=== PATIENT | male | born 1945 | race Caucasian/White ===

== ENCOUNTER 2018-04-28 15:04 | Observation (INO) | payer OTHER ==
[2018-04-28] MEDS ORDERED: ACETAMINOPHEN 500 MG TAB PO PRN (15:22)
[2018-04-28] MEDS ORDERED: ONDANSETRON 4 MG/2 ML VIAL IV PRN (15:22)
--- NOTE | 2018-04-28 15:58 | P.CNS ---
Date of Consult: 04/28/18 Reason for Consult: Admission Requesting Physician: Connor Arce Primary Care Provider: Silvana Chief Complaint: AMS History of Present Illness: This is a 72-year-old male with significant history of arthritis and urinary retention who presented to Dr. Arce office for altered mental status and urinary retention. Dr. Arce urologist 7 the patient to the hospital for direct admission for obstructive uropathy. Initially hospitalist team was consulted to admit the patient to the hospital for altered mental status and urinary retention. Patient's symptoms started about 2-3 days ago and has gotten progressively worse. Patient does have chronic urinary retention and does have a Hayes catheter in place for that. Home medications list reviewed: Yes - Past Medical/Surgical History Past Surgical History: Reviewed- Non-Contributory - Social History Smoking Status: Former smoker Counseled patient to stop smoking for: less than 10 minutes Smoking therapy provided: No Patient receptive to therapy: No Alcohol use: No CD- Drugs: No Caffeine use: No Place of Residence: Home Review of Systems 10-point ROS is otherwise unremarkable Physical Examination General: Alert, In no apparent distress, Oriented x1, Confused HEENT: Atraumatic, PERRLA, Mucous membr. moist/pink, EOMI, Sclerae nonicteric Neck: Supple, 2+ carotid pulse no bruit, No LAD, Without JVD or thyroid abnormality Respiratory: Clear to auscultation bilaterally, Normal air movement Cardiovascular: Regular rate/rhythm, Normal S1 S2 Gastrointestinal: Normal bowel sounds, No tenderness Musculoskeletal: No tenderness Integumentary: No rashes Neurological: Normal gait, Normal speech, Normal tone, Normal affect Lymphatics: No axilla or inguinal lymphadenopathy - Problems (1) Altered mental status Current Visit: Yes Status: Acute Qualifiers: Altered mental status type: disorientation Qualified Code(s): R41.0 - Disorientation, unspecified (2) Obstructive uropathy Current Visit: Yes Status: Acute Conclusions/Impression: Patient seen and examined at bedside with RN. Chart was reviewed. Case was discussed with Dr. Arce. Upon further questioning patient was asked about his primary care doctor who appears to be doctor Pina. After rising does his own patient here in the hospital. Will go ahead and hand over the case to Dr. Pina for further care. Initial orders placed for IV fluids and antibiotics. Head CT pending as well. Will give report to Dr. Pina for further care. Critical Care: No
[2018-04-28] MEDS ORDERED: NA CHLORIDE 0.9% 1,000 ML IV SCH (16:00)
[2018-04-28 16:48] LABS: Absolute Lymphocytes (CBC) 0.6 K/uL (0.7-4.9); Absolute Neutrophil 9.3 K/uL (1.8-8.0); Basophils % 0.4 % (0-1.3); Eosinophils % 0.4 % (0-4.4); Hematocrit 44.6 % (39.6-49.0); Lymphocytes % 5.3 % (15.3-44.8); MCH 33.1 pg (27.0-35.0); MCV 97.5 fL (80-100); MPV 8.1 fL (7.6-11.3); Monocytes % 9.3 % (3.3-12.3); RBC Red Blood Cell Count 4.58 M/uL (4.33-5.43)
[2018-04-28 16:53] LABS: Albumin 3.6 g/dL (3.4-5.0); Potassium 3.9 mmol/L (3.5-5.1)
[2018-04-28 16:56] LABS: Urine Appearance CLOUDY; Urine Bilirubin NEGATIVE (NEG); Urine Blood 3+ (NEG); Urine Color YELLOW; Urine Glucose NEGATIVE (NEG); Urine Protein NEGATIVE (NEG); Urine Specific Gravity 1.015 (1.005-1.030); Urine Urobilinogen 0.2 mg/dL (0.2-1.0)
--- NOTE | 2018-04-28 17:10 | RAD REPORT ---
EXAM DESCRIPTION: CT - Head Brain Wo Cont - 04/28/2018 3:49 pm CLINICAL HISTORY: AMS, dizziness COMPARISON: None. TECHNIQUE: Axial 5 mm thick images of the head were obtained without IV contrast. All CT scans are performed using dose optimization technique as appropriate and may include automated exposure control or mA/KV adjustment according to patient size. FINDINGS: No intracranial hemorrhage, mass, edema or shift of mid-line structures. No acute infarcti on changes seen. No abnormal extra-axial fluid collections. Ventricles are normal. Mastoid air cells are clear. There is complete opacification of the left maxillary sinus is soft tiss ue extending into the left nasal passage. There is some mineralization indicating inspissated mucus. Polyposis component is possible as well. No acute bony findings. IMPRESSION: No hemorrhage or other acute intracranial finding. Chronic left maxillary sinusitis. There may be a polyposis component.
[2018-04-28 17:14] LABS: Urine Bacteria <20 /HPF (NONE SEEN); Urine Culture Reflex Order NOT NEEDED; Urine RBC >50 /HPF (NONE SEEN)
[2018-04-28 17:38] LABS: Albumin 3.7 g/dL (3.4-5.0); Bilirubin Direct 0.3 mg/dL (0-0.2); Protein, Total 6.9 g/dL (6.4-8.2)
[2018-04-28] MEDS: CEFTRIAXONE/SWI 1gm 1 GM/10 ML SYR IVP SCH (17:42)
[2018-04-28] MEDS ORDERED: HYDROCODONE/APAP 7.5/325 MG TAB PO ONE (21:25)
[2018-04-28 21:31] LABS: Protime INR 1.08
[2018-04-28 21:49] LABS: Arterial Blood Carboxyhemoglob 1.1 % (0-1.5); Blood Gas Oxyhemoglobin 92.3 % (94-97); Blood O2 Saturation 94.6 % (92-98.5)
[2018-04-28] MEDS ORDERED: ENOXAPARIN 60 MG/0.6 ML SQ ONE (21:53)
[2018-04-28] MEDS: POTASSIUM CHLORIDE-0.45% NACL 20 MEQ/1,000 ML BAG IV SCH (21:57)
--- NOTE | 2018-04-28 22:05 | RAD REPORT ---
EXAM DESCRIPTION: RAD - Chest Single View - 04/28/2018 9:52 pm CLINICAL HISTORY: Dyspnea COMPARISON: None. TECHNIQUE: AP portable chest image was obtained 2138 hours . FINDINGS: Lungs are clear. Heart and vasculature are normal. No measurable pleural effusion and no p neumothorax. No acute bony abnormality seen. No acute aortic findings suspected. IMPRESSION: No acute cardiopulmonary process.
[2018-04-29] MEDS: POTASSIUM CHLORIDE-0.45% NACL 20 MEQ/1,000 ML BAG IV SCH ×2 (03:00→11:59)
[2018-04-29] MEDS ORDERED: PANTOPRAZOLE 40MG TABLET PO SCH (06:30)
[2018-04-29 06:45] LABS: Absolute Lymphocytes (CBC) 1.1 K/uL (0.7-4.9); Absolute Monocytes 0.8 K/uL (0.1-1.3); Absolute Neutrophil 4.6 K/uL (1.8-8.0); Basophils % 0.7 % (0-1.3); Eosinophils % 4.4 % (0-4.4); Hematocrit 41.4 % (39.6-49.0); Lymphocytes % 15.8 % (15.3-44.8); MCH 33.5 pg (27.0-35.0); MCV 98.1 fL (80-100); Monocytes % 12.3 % (3.3-12.3); RBC Red Blood Cell Count 4.22 M/uL (4.33-5.43)
[2018-04-29 07:06] LABS: ALT/SGPT 40 U/L (12-78); AST/SGOT 51 U/L (15-37); Alkaline Phosphatase 56 U/L (45-117); BUN Blood Urea Nitrogen 26 mg/dL (7-18); Bicarbonate 26 mmol/L (21-32); Bilirubin Total 0.8 mg/dL (0.2-1.0); Glucose Level 83 mg/dL (74-106); Magnesium 2.5 mg/dL (1.8-2.4); Phosphorus 2.5 mg/dL (2.5-4.9); Potassium 3.9 mmol/L (3.5-5.1); Sodium Level 145 mmol/L (136-145); Troponin I < 0.02 ng/mL (0.0-0.045)
[2018-04-29] MEDS ORDERED: CEFTRIAXONE 1 GM/NS 50 ML 1 GM/50 ML BAG IV SCH (09:00)
[2018-04-29] MEDS ORDERED: LOSARTAN POTASSIUM 50 MG TABLET PO SCH (09:00)
[2018-04-29] MEDS: CEFTRIAXONE/SWI 1gm 1 GM/10 ML SYR IVP SCH (09:13)
[2018-04-29] MEDS ORDERED: TRAMADOL HCL 50 MG TAB PO PRN (09:38)
[2018-04-29] MEDS ORDERED: HYDROCODONE/APAP 7.5/325 MG TAB PO PRN (09:38)
--- NOTE | 2018-04-29 09:40 | P.PN ---
Subjective Date of Service: 04/29/18 I was asked to see patient by primary care provider. Patient was getting short of breath. Blood gases revealed respiratory alkalosis. Blood pressure was elevated and patient with elevated D-dimer. Patient given 1 dose of Lovenox. V /Q scan ordered as patient's creatinine is elevated and unable to do a CT with PE protocol at this time. Continue gentle hydration. Patient may need and anxiolytics. Resume his home medications. Will monitor him closely. Review of Systems 10-point ROS is otherwise unremarkable Physical Examination - Vital Signs Temperature: 97.4 F Blood Pressure: 188/95 Pulse: 77 Respirations: 18 Pulse Ox (%): 96 - Physical Exam General: Alert, In no apparent distress Respiratory: Clear to auscultation bilaterally, Normal air movement Cardiovascular: Regular rate/rhythm, Normal S1 S2, Systolic murmur Gastrointestinal: Normal bowel sounds, Soft and benign, Non-distended, No tenderness Musculoskeletal: No clubbing, No swelling, No tenderness Neurological: Normal speech, Normal tone, Sensation intact, Cranial nerves 3-12 intact, Normal affect - Studies Laboratory Data (last 24 hrs) 04/29/18 06:17: Sodium 145, Potassium 3.9, BUN 26 H D, Creatinine 1.00, Glucose 83, Phosphorus 2.5, Magnesium 2.5 H, Total Bilirubin 0.8, AST 51 H, ALT 40, Alkaline Phosphatase 56, Troponin I < 0.02 04/29/18 06:17: WBC 6.8 D, Hgb 14.1, Hct 41.4, Plt Count 181 04/28/18 21:08: Troponin I 0.02 04/28/18 21:08: Creatinine 1.80 H D 04/28/18 21:08: PT 12.7 H, INR 1.08, APTT 28.5 04/28/18 17:03: Total Bilirubin 1.0, AST 71 H, ALT 47, Alkaline Phosphatase 69 04/28/18 16:13: Sodium 141, Potassium 3.9, BUN 49 H, Creatinine 3.30 H, Glucose 116 H, Total Bilirubin 1.0, AST 74 H, ALT 47, Alkaline Phosphatase 67 04/28/18 16:13: WBC 11.0 H, Hgb 15.2, Hct 44.6, Plt Count 201 Medications List Reviewed: Yes Assessment & Plan - Problems (Diagnosis) (1) Shortness of breath Status: Acute (2) Respiratory distress Status: Acute (3) Elevated d-dimer Status: Acute (4) Respiratory alkalosis Status: Acute (5) Obstructive uropathy Onset Date: 04/29/18 Status: Acute - Plan Plan: 1. V/Q scan 2. Anti coagulation 3. Echocardiogram 4. ABGs reviewed 5. Hydration and monitor renal function 6. Telemetry monitoring 7. GI and DVT prophylaxis - Advance Directives Does patient have a Living Will: Yes Does patient have a Durable POA for Healthcare: Yes - Code Status/Comfort Care Code Status Assessed: Yes Code Status: Full Code Critical Care: No Time Spent Managing PTS Care (In Minutes): 65
--- NOTE | 2018-04-29 10:59 | RAD REPORT ---
EXAM DESCRIPTION: CT - Chest For Pe Angio - 04/29/2018 10:44 am CLINICAL HISTORY: Chest pain. Pulmonary embolism. COMPARISON: Chest Single View dated 04/28/2018 TECHNIQUE: CT angiogram of the pulmonary arteries was performed with MIP. All CT scans are performed using dose optimization technique as appropriate and may include automated exposure control or mA/KV adjustment according to patient size. FINDINGS: No evidence of pulmonary thromboembolism. The ascending thoracic aorta is ectatic measuring up to 4.5 cm. No aortic dissection is seen. No pene trating ulcer is identified. The lungs are mildly emphysematous but clear. No pulmonary nodule, mass or infiltrate. No significant pericardial or pleural fluid. No concerning bony finding. IMPRESSION: No evidence of pulmonary thromboembolism. Ascending thoracic aorta is ectatic measuring up to 4.5 cm. COPD.
--- NOTE | 2018-04-29 11:17 | ECHO ---
HEIGHT: 5 ft 4 in WEIGHT: 146 lb 0 oz DATE OF STUDY: 04/29/[address]: Gregoria Hart MD 2-DIMENSIONAL: YES M.MODE: YES DOPPLER: YES COLOR FLOW: YES TDS: YES PORTABLE: NO DEFINITY: NO BUBBLE STUDY: NO DIAGNOSIS: PE CARDIAC HISTORY: CATHERIZATION: NO SURGERY: NO PROSTHETIC VALVE: NO PACEMAKER: NO MEASUREMENTS (cm) DIASTOLIC (NORMALS) SYSTOLIC (NORMALS) IVSd 1.1 (0.6-1.2) LA Diam 4.1 (1.9-4.0) LVEF 72% LVIDd 4.2 (3.5-5.7) LVIDs 2.5 (2.0-3.5) %FS 41% LVPWd 1.1 (0.6-1.2) Ao Diam 3.4 (2.0-3.7) 2 DIMENSIONAL ASSESSMENT: RIGHT ATRIUM: NORMAL LEFT ATRIUM: NORMAL RIGHT VENTRICLE: NORMAL LEFT VENTRICLE: NORMAL TRICUSPID VALVE: NORMAL MITRAL VALVE: NORMAL PULMONIC VALVE: NORMAL AORTIC VALVE: NORMAL PERICARDIAL EFFUSION: NONE AORTIC ROOT: NORMAL LEFT VENTRICULAR WALL MOTION: NORMAL DOPPLER/COLOR FLOW: NORMAL COMMENTS: NORMAL 2D ECHOCARDIOGRAM WITH DOPPLER. NO WALL MOTION ABNORMALITY. NO PULMONARY HYPERTENSION. TECHNOLOGIST: Nick LUKE
--- NOTE | 2018-04-29 13:55 | EKG ---
Test Date: 2018-04-29 Test Time: 08:58:33 [employer] Temperer: ETHAN MEASUREMENT RESULTS: Intervals: Rate: 66 WI: 148 QRSD: 86 QT: 424 QTc: 444 [place]: P: 68 WI: 148 QRS: -50 T: 24 INTERPRETIVE STATEMENTS: Normal sinus rhythm Left anterior fascicular block Abnormal ECG No previous ECG available for comparison Electronically Signed On 04-29-18 13:53:14 CDT by Oscar Hernandez
[2018-04-29] MEDS ORDERED: POTASSIUM CL SA 10 MEQ TAB PO ONE (15:13)
--- NOTE | 2018-04-29 18:44 | CON ---
Brief History: A 72-year-old gentleman, who came in with flank pain and abdominal pain. PVR showed he had over 800 mL in the bladder, was having obstructive uropathy, was confused. The daughter and s on-in-law were present. The patient has a history of retention. Apparently, he has gone into retent ion before once in 2013 when he was constipated, and then is able to void well after that. He said a t this time he was also constipated. When he went into urinary retention, he normally voids well. H e says he does not need anything more done for the prostate. He does not need any Flomax or any TURP to be done. He is good he says. Hayes catheter was placed, and he has passed over 2 L of urine ove rnight. His creatinine has responded well from a high of 3.3, now it is 1.0, GFR went from 19-73 ove rnight, so he is responding well to the drainage. He also had some difficulty breathing last night a nd he was ruled out for PE this morning. Apparently, they could not give him the contrast last night due to the GFR, but he did have a V/Q scan that was negative and a CT angiogram was done this mornin g was also negative. We will plan to keep his catheter in for weeks, at the moment on low-dose antib iotic prescription, and follow up with me in a week to have the catheter removed. Again, the patient does not want any further urological workup done. His last PSA was 4.1 done in 2013. Allergies: TO FLOMAX CAUSES HEADACHES, HE SAYS. Review of Systems: A 10-point review of systems essentially normal and negative. Vital Signs: Latest vital signs shows temperature 97.4, pulse 76, respirations 18, BP 170/90, and sa ts 97%. Past Surgical History: Vasectomy, right knee cartilage removal, and lower back injections. Family History: Father had a heart attack at 50 and history of lung cancer. Past Medical History: No significant past medical history. Immunizations: Up to date. Social History: Alcohol, drinksliquor infrequently. No drug use. Home Medications: Baclofen, tramadol, omeprazole, losartan, and hydrocodone. Physical Examination: Vital Signs: Afebrile, stable. General: Alert, no apparent distress, oriented now x3. Family is present in the room. HEENT: Atraumatic, normocephalic. Neck: Supple. Respiratory: Clear. Cardiovascular: S1, S2. Gastrointestinal: Normal bowel sounds. Skin: No rashes. Neurologic: Alert and oriented. Lymphatics: No lymphadenopathy. Labs: Latest chemistry; sodium 145, potassium 3.9, chloride 112, carbon dioxide 26, BUN 26, creatini ne 1.0, GFR 73, glucose 83, calcium 8.3, phosphorus 2.5, magnesium 2.5, AST 51, ALT 40, alkaline phos phatase 56. Hematology: white count 6.8, H and H 14 and 41, platelet count 181. Coagulation shows D-dimer elevated at 3426. Urine shows 3+ blood, negative nitrite, negative esterase, rbc greater than 50, most likely from the Hayes catheter and deflation of the bladder. Assessment: Obstructive uropathy from the patient secondary to constipation, most likely. The patie nt just wants conservative management. He is allergic to Flomax. We wants to just have the constipation resolve and then remove his catheter in a week and send him home on prophylactic antibio tic. PB/MODL Voice ID: [id number] Report ID: [id number]
[2018-04-29] MEDS ORDERED: BACLOFEN 10 MG TAB PO SCH (21:00)
--- NOTE | 2018-04-30 00:06 | SS ---
Date of Discharge: 04/29/2018 SHORT-STAY SUMMARY The patient was admitted to the hospital on 04/28 after presenting to the office of Dr. Arce, at [facility] time he had obvious urinary retention which he had in the past. Dr. Arce's office inserted the c atheter with 1000 cc were removed. Since he was slightly confused, he was admitted for further obser vation and treatment. Shortly after admission, he became according to the nurse slightly more disori entated, and had trouble breathing, and his O2 saturation dropped, and the possibility of PE was cons idered; however, his workup subsequently proved to be negative. His creatinine on admission was 3.3, possibly causing his symptoms. By the time he had drained the urine, and had IV fluids, his creatin ine dropped dramatically, so it was 1 by the next morning, at which time, the CT angio was done. By this time, he was fully orientated. He stated he did not feel it was his prostate, although Dr. Alin eastman felt that it was. He had a similar scenario a number of years ago, at that time also decided not t o have the procedure. Remainder of his hospital stay was relatively benign. His blood work was norm al. He was seen by Dr. Arce in the afternoon of the discharge, who felt the catheter should be left in for the next few days to be seen next Saturday. He was placed on Bactrim, to follow up with me lat er in the week. HR/MODL Voice ID: [id number] Report ID: [id number]
[2018-04-30] MEDS ORDERED: LOSARTAN POTASSIUM 50 MG TABLET PO SCH (09:00)
[2018-04-30] MEDS ORDERED: HOME MED 1 EA UNK (Omeprazole [Prilosec] 40 MG) PO SCH (09:00)
== END 2018-04-29 17:35 | disposition home or self-care (01) ==
LOC: 2ND 15:04
PROVIDERS: ADMIT Family Medicine; ATTEND Family Medicine
DX: N13.9 Obstructive and reflux uropathy, unspecified (principal); E87.3 Alkalosis; R79.1 Abnormal coagulation profile; K59.00 Constipation, unspecified
CPT/HCPCS: 36415; 70450; 71045; 71275; 80053; 80076; 81001; 82565; 82805; 83735; 84100; 84484; 85025; 85379; 85610; 85730; 87086; 87088; 93005; 93306; G0378; J0696; J1650; J7030; Q9967

== ENCOUNTER 2018-07-16 08:54 | Day surgery (SDC) | payer OTHER ==
[2018-07-16] MEDS ORDERED: Ringers Lactate 1,000 ML IV ONE ×2 (09:27→12:31)
[2018-07-16] MEDS ORDERED: CEFAZOLIN 1GM (PREMIX IV) 1 GM/50 ML BAG ONE (09:27)
[2018-07-16] MEDS ORDERED: PROPOFOL 200 MG/20 ML VIAL IV ONE (10:35)
[2018-07-16] MEDS ORDERED: MIDAZOLAM HCL 2 MG/2 ML INJ ONE (10:38)
[2018-07-16] MEDS ORDERED: FENTANYL CITR 100 MCG/2 ML ONE (10:38)
[2018-07-16] MEDS ORDERED: LIDOCAINE 2% MPF 5 ML VIAL ONE (10:39)
[2018-07-16] MEDS ORDERED: ROCURONIUM 50 MG/5 ML VIAL IV ONE (10:40)
[2018-07-16] MEDS ORDERED: BUPIVACAINE 0.5% PF 10 ML VIAL ONE (10:40)
[2018-07-16] MEDS ORDERED: ONDANSETRON 4 MG/2 ML VIAL ONE (10:40)
[2018-07-16] MEDS ORDERED: EPHEDRINE SULF 50 MG/10 ML SYR ONE (11:19)
[2018-07-16] MEDS ORDERED: NEOSTIGMINE 1 MG/ML -5 ML SYRINGE ONE (12:20)
[2018-07-16] MEDS ORDERED: GLYCOPYRROLATE 0.2 MG/ML SYR ONE (12:20)
[2018-07-16] MEDS: MEPERIDINE HCL 25 MG/0.5 ML ONE ×4 (12:34→12:52)
[2018-07-16] MEDS ORDERED: MEPERIDINE HCL 25 MG/0.5 ML ONE (12:55)
[2018-07-16] MEDS ORDERED: HYDROCODONE/APAP 7.5/325 MG TAB ONE (13:27)
--- NOTE | 2018-07-16 23:30 | OP ---
Date of Procedure: 07/16/2018 Surgeon: Rodriguez Mejía MD Preoperative Diagnosis: Bilateral inguinal hernia. Postoperative Diagnosis: Bilateral inguinal hernia. Procedure: Repair of bilateral inguinal hernias. Estimated Blood Loss: Minimal. Specimen: Bilateral hernia sac and cord lipoma on the right side. Findings: As above. Anesthesia: General. Complications: None. Disposition: The patient tolerated the procedure in stable condition and was taken to recovery in go od general condition. Description Of Procedure: The patient was brought to the OR and placed in the supine position. Gene ral anesthesia was begun. The patient was prepped and draped in usual sterile fashion. Marcaine 0.5 % was infiltrated in a field block fashion in both groins. A 4-cm oblique incision was made in the r ight groin between the pubic tubercle and the anterior iliac superior spine. Subcutaneous tissues we re divided. The fascia was identified and divided. Aponeurosis was identified and mobilized inferio rly to expose shelving edge and it was then opened through the external ring. Ilioinguinal nerve was identified and retracted out of the field of dissection. Cord was mobilized, skeletonized. A large cord lipoma and hernia sac were identified and from the cord structures, and then both the hernia sac and cord lipoma were excised and sent to Pathology as specimen. A 2-0 Prolene suture lig ature and free hand tie were used to tie out the base of the hernia sac, and 2-0 chromic was used to tie out the base of the cord lipoma. Then, Marlex mesh plug was placed in the internal ring, secured with VersaTack stapler only. Mesh was placed on the inguinal floor, secured medially to the pubic t ubercle, inferiorly to the shelving edge, superiorly to the conjoined tendon, and laterally to each o ther. Then, cord structures and the inguinal nerve were placed back in anatomical location. A 2-0 P rolene was used to close the aponeurosis, and 3-0 chromic was used to close the Ethan fascia. Stapl es were used to close the skin. Exact same operation was carried on the left side, except the hernia sac was much smaller. Otherwise, the findings remained the same, and the repair was the same. Subs equently, after both sides were done, sterile dressings were applied. The patient was awakened and t aken to Recovery in good general condition. Discharge Note: The patient will go to Day Surgery and home when stable. Disposition: Home. Condition: Stable. Discharge Instructions: Resume home medications and diet. Activity as tolerated. No heavy lifting. Remove outer dressing in 2 days. Shower. Keep wound clean and dry. Follow up in my office in 1 w [place]. Call for appointment. Tylenol No. 3 one tablet p.o. q.4 hours p.r.n. pain. Ice pack, scrotal support. /MODL Voice ID: [id number] Report ID: [id number]
== END 2018-07-16 15:02 | disposition home or self-care (01) ==
LOC: OR 08:54
PROVIDERS: ATTEND Surgery
PROC: 0YUA0JZ Supplement Bilateral Inguinal Region with Synthetic Substitute, Open Approach (ICD-10-PCS; principal; 2018-07-16 10:00)
DX: K40.20 Bilateral inguinal hernia, without obstruction or gangrene, not specified as recurrent (principal); I10 Essential (primary) hypertension; N40.0 Benign prostatic hyperplasia without lower urinary tract symptoms; K21.9 Gastro-esophageal reflux disease without esophagitis; Z88.0 Allergy status to penicillin; Z80.1 Family history of malignant neoplasm of trachea, bronchus and lung; Z80.41 Family history of malignant neoplasm of ovary
CPT/HCPCS: 49505; 88302; J0690; J2175 ×2; J2250; J2405; J2704; J2710; J3010

== ENCOUNTER 2023-10-20 17:32 | Inpatient (IN) | payer OTHER ==
[2023-10-20] MEDS ORDERED: NA CHLORIDE 0.9% 250 ML ONE (18:18)
[2023-10-20] MEDS ORDERED: CEFEPIME 2 GM VIAL ONE (18:18)
[2023-10-20] MEDS ORDERED: VANCOMYCIN 1 GM/VIAL ONE (18:18)
[2023-10-20] MEDS ORDERED: NA CHLORIDE 0.9% 100 ML ONE (18:19)
[2023-10-20 18:31] LABS: Absolute Lymphocytes (CBC) 0.4 K/uL (0.7-4.9); Absolute Monocytes 0.7 K/uL (0.1-1.3); Absolute Neutrophil 11.2 K/uL (1.8-8.0); Basophils % 0.1 % (0-1.3); Eosinophils % 0.2 % (0-4.4); Hematocrit 38.4 % (39.6-49.0); Hemoglobin 12.8 g/dL (13.6-17.9); Lymphocytes % 3.1 % (15.3-44.8); MCH 32.3 pg (27.0-35.0); MCHC 33.4 g/dL (32.0-36.0); MCV 96.6 fL (80-100); MPV 7.4 fL (7.6-11.3); Monocytes % 5.9 % (3.3-12.3); Neutrophils % 90.7 % (41.7-73.7); Platelets 316 thou/uL (152-406); RBC Red Blood Cell Count 3.97 M/uL (4.33-5.43); Red Cell Distribution Width 14.6 % (12.1-15.2)
[2023-10-20] MEDS ORDERED: IPRATROPIUM BROM 0.5MG/2.5ML ONE (18:31)
[2023-10-20] MEDS ORDERED: ALBUTEROL 2.5 MG/3 ML NEB SOL ONE (18:31)
[2023-10-20 18:39] LABS: PT Prothrombin Time 15.6 SECONDS (9.5-12.5); PTT, Activated Partial Thromb 36.1 SECONDS (24.3-36.9); Protime INR 1.43
[2023-10-20 18:45] LABS: Blood Gas Oxyhemoglobin 84.2 % (94-97); Blood O2 Saturation 86.4 % (92-98.5)
[2023-10-20 18:47] LABS: Albumin 2.5 g/dL (3.4-5.0); Albumin/Globulin Ratio 0.6 (1.1-1.8); Anion Gap 9.9 mEq/L (5.0-15.0); Bilirubin Total 0.7 mg/dL (0.2-1.0); Globulin 4.1 g/dL (2.3-3.5); Potassium 3.9 mEq/L (3.5-5.1); Protein, Total 6.6 g/dL (6.4-8.2); Troponin High Sensitivity 6.1 pg/mL (<58.9)
--- NOTE | 2023-10-20 18:58 | RAD REPORT ---
EXAM DESCRIPTION: RAD - Chest Single View - 10/20/2023 6:44 pm CLINICAL HISTORY: DYSPNEA COMPARISON: Chest Single View dated 04/28/2018; Abdomen Pelvis W Contrast dated 06/12/2018 FINDINGS: Lines: None. Lungs: Airspace disease in the right lung, most notably at the right lung base. Possible atelectasis at the left lung base. Pleural: Probable moderate right pleural effusion. Cardiac: Partially obscured and not well evaluated. Mediastinum: Within normal limits. Bones: No acute fractures. Other: None IMPRESSION: Right pleural effusion which may be moderate in size with underlying airspace disease th at could be secondary to atelectasis, pneumonia, or alternate process
[2023-10-20] MEDS ORDERED: NA CHLORIDE 0.9% 500 ML ONE ×2 (19:05→19:19)
[2023-10-20] MEDS ORDERED: ALBUMIN HUMAN 25% 100 ML IV ONE (19:19)
[2023-10-20] MEDS ORDERED: ACETAMINOPHEN 325 MG TABLET PO PRN (19:45)
[2023-10-20] MEDS ORDERED: ONDANSETRON 4 MG/2 ML VIAL IV PRN (19:45)
--- NOTE | 2023-10-20 19:49 | EDPHYS ---
Physician Documentation [facility] Name: Jay Patel Age: 78 yrs Sex: Male : 1945 Arrival Date: 10/20/2023 Time: 17:32 Bed 8 Private MD: ED Physician Froy Melgar HPI: 10/19 18:34 This 78 yrs old Male presents to ER via EMS with complaints of Shortness Of Breath, rt Altered Mental Status. 18:34 Patient presents to the ED with confusion, altered mental status. Patient states that rt he was sleeping it. Does have a cough. Denies other acute complaints at this time, symptoms are severe in severity, no other aggravating or alleviating factors. Patient's room air saturations were reportedly 94% on room air.. Historical: - Allergies: 17:46 Bactrim; ld1 17:46 PENICILLINS; ld1 - Home Meds: 18:40 alprazolam 0.5 mg Oral tablet 1 tab daily [Active]; escitalopram oxalate 10 mg oral ld1 tablet 1 tab daily [Active]; prednisone 1 mg oral tablet daily [Active]; atorvastatin 10 mg oral tablet 1 tab daily [Active]; omeprazole 40 mg oral capsule,delayed release (e.c.) 1 cap daily [Active]; baclofen 10 mg Oral tablet 1 tab 4 times per day [Active]; tamsulosin 0.4 mg oral capsule 1 cap daily [Active]; hydrocodone-acetaminophen 7.5-325 mg Oral tablet 1 tab 3 times per day [Active]; - PMHx: 18:43 Anxiety; BPH; Depressive disorder; Hypercholesterolemia; ld1 - Immunization history:: Adult Immunizations up to date. - Infectious Disease History:: Denies. - Social history:: Smoking status: Patient denies any tobacco usage or history of. - Family history:: not pertinent. ROS: 18:34 Cardiovascular: Negative for chest pain, palpitations, and edema, Abdomen/GI: Negative rt for abdominal pain, nausea, vomiting, diarrhea, and constipation, MS/Extremity: Negative for injury and deformity, 18:34 Constitutional: Positive for fatigue, malaise, 18:34 Respiratory: Positive for cough, shortness of breath, Exam: 17:46 Constitutional: This is a well developed, well nourished patient who is awake, alert, rt and in no acute distress. Head/Face: Normocephalic, atraumatic. Chest/axilla: Normal chest wall appearance and motion. Nontender with no deformity. No lesions are appreciated. Cardiovascular: Regular rate and rhythm with a normal S1 and S2. No gallops, murmurs, or rubs. Normal PMI, no JVD. No pulse deficits. Abdomen/GI: Soft, non-tender, with normal bowel sounds. No distension or tympany. No guarding or rebound. No evidence of tenderness throughout. Skin: Warm, dry with normal turgor. Normal color with no rashes, no lesions, and no evidence of cellulitis. MS/ Extremity: Pulses equal, no cyanosis. Neurovascular intact. Full, normal range of motion. 17:46 ECG was reviewed by the Attending Physician. 18:34 ECG was reviewed by the Attending Physician. rt 18:34 Respiratory: Scattered crackles heard on all lung cabrera, moderate respiratory distress, Vital Signs: 17:45 BP 106 / 64; Pulse 96; Resp 23; Temp 97.9(TE); Pulse Ox 100% on 15 lpm Non-rebreather ld1 mask; Weight 51.26 kg; Height 5 ft. 6 in. ; Pain 0/10; 18:03 Pulse Ox 88% on 10 lpm Non-rebreather mask; ld1 18:39 BP 92 / 59; Pulse 84; Resp 16; Pulse Ox 99% on 15 lpm BiPAP; ld1 19:52 BP 103 / 70; Pulse 81; Resp 19 S; Pulse Ox 99% on BiPAP; lg3 17:45 Body Mass Index 18.24 (51.26 kg, 167.64 cm) ld1 17:45 Pain Scale: Adult ld1 18:03 Notified ERP and Respiratory ld1 MDM: 17:58 Patient medically screened. rt 19:49 Differential diagnosis: Pneumonia, CHF, sepsis. Antibiotic administration: Data rt reviewed: vital signs, nurses notes, lab test result(s), EKG, radiologic studies. Consideration of Admission/Observation Patient was admitted/placed on observation. Management of patient was discussed with the following: Hospitalist: Agrees to admit. Discussed with Dr. Pina, he states that he does not believe that he is currently the patient's PCP and requested hospitalist be consulted for admission.. I considered the following discharge prescriptions or medication management in the emergency department Medications were administered in the Emergency Department. See MAR. Independent interpretation of the following test(s) in the Emergency Department X-Ray: My interpretation is Pneumonia seen on interpretation of x-ray images. Care significantly affected by the following chronic conditions: Hypertension. Counseling: I had a detailed discussion with the patient and/or guardian regarding the historical points, exam findings, and any diagnostic results supporting the discharge/admit diagnosis, lab results, radiology results, the need for further work-up and treatment in the hospital. Response to treatment: the patient's symptoms have markedly improved after treatment. ED course: We that patient is at high risk for respiratory failure due to volume overload, will stop with 1 L fluids, he is improving from a blood pressure standpoint. Will give some albumin for colloid support.. 10/19 18:05 Order name: Blood Culture Adult (2) rt 10/19 18:05 Order name: CBC with Diff rt 10/19 18:05 Order name: CMP; Complete Time: 18:53 rt 10/19 18:05 Order name: Lactate w/ 2H reflex if indic.; Complete Time: 18:53 rt 10/19 18:05 Order name: Protime (+inr); Complete Time: 18:53 rt 10/19 18:05 Order name: Ptt, Activated; Complete Time: 18:53 rt 10/19 18:05 Order name: ABG; Complete Time: 18:53 rt 10/19 18:05 Order name: Troponin High Sensitivity; Complete Time: 18:53 rt 10/19 18:05 Order name: BNP; Complete Time: 18:53 rt 10/19 19:50 Order name: Urinalysis w/ reflexes EDMS 10/19 19:50 Order name: CBC with Automated Diff EDMS 10/19 19:50 Order name: CBC with Automated Diff EDMS 10/19 19:50 Order name: Comprehensive Metabolic Panel EDMS 10/19 19:50 Order name: Comprehensive Metabolic Panel EDMS 10/19 20:15 Order name: Manual Differential EDMS 10/19 18:05 Order name: Chest Single View XRAY; Complete Time: 19:12 rt 10/19 18:05 Order name: Accucheck; Complete Time: 18:06 rt 10/19 18:05 Order name: Cardiac monitoring; Complete Time: 18:05 rt 10/19 18:05 Order name: EKG - Nurse/Tech; Complete Time: 18:05 rt 10/19 18:05 Order name: IV Saline Lock - Large Bore; Complete Time: 18:05 rt 10/19 18:05 Order name: Labs collected and sent; Complete Time: 18:05 rt 10/19 18:05 Order name: O2 Per Protocol; Complete Time: 18:06 rt 10/19 18:05 Order name: O2 Sat Monitoring; Complete Time: 18:06 rt 10/19 18:05 Order name: Vital Signs; Complete Time: 18:06 rt EC:46 Rate is 93 beats/min. Rhythm is regular, Normal Sinus Rhythm with No ectopy. Left axis rt deviation noted. UT interval is normal. QRS interval is normal. QT interval is normal. No Q waves. Clinical impression: NSR w/ Non-specific ST/T Changes. 18:29 Rate is 86 beats/min. Rhythm is regular, Normal Sinus Rhythm with No ectopy. QRS [place] rt is Normal. UT interval is normal. QRS interval is normal. QT interval is normal. No Q waves. Clinical impression: NSR w/ Non-specific ST/T Changes. Administered Medications: 18:29 Drug: Cefepime IVPB 2 grams IVPB at 200 ml/hr once over 30 mins; (mix in NS 100 mL) ld1 Route: IVPB; Rate: 200 ml/hr; Infused Over: 30 mins; Site: right upper arm; 19:03 Follow up: Response: No adverse reaction; IV Status: Completed infusion; IV Intake: bm8 100ml 18:38 Drug: DuoNeb Nebulize (3:1) (2.5 mg - 0.5 mg) 3 ml Nebulizer once Route: Nebulizer; ld1 19:03 Follow up: Response: No adverse reaction bm8 19:03 Drug: vancoMYCIN IVPB 1 grams IVPB once over 2 hrs Route: IVPB; Infused Over: 2 hrs; bm8 Site: right antecubital; 19:05 Drug: NS 0.9% IV 500 ml IV at bolus once Route: IV; Rate: bolus; Site: right bm8 antecubital; 19:49 Follow up: Response: No adverse reaction; IV Status: Completed infusion; IV Intake: lg3 500ml 19:48 Drug: NS 0.9% IV 500 ml IV at bolus once Route: IV; Rate: bolus; Site: right lg3 antecubital; 19:58 Drug: Albumin IVPB 25 grams 100 ml IVPB once; (Note: Albumin 25% concentration) Volume: lg3 100 ml; Route: IVPB; Site: right antecubital; Disposition: 19:50 Critical Care:. rt Disposition Summary: 10/20/23 19:49 Hospitalization Ordered Notes: Hospitalization Status: Inpatient Admission rt Provider: Nate Washington rt Location: Intensive Care Unit rt Condition: Critical rt Problem: new rt Symptoms: have improved rt Bed/Room Type: Standard rt Room Assignment: 4-(10/20/23 20:11) rv1 Diagnosis - Pneumonia rt - Sepsis rt - Hypoxic respiratory failure rt Forms: - Medication Reconciliation Form rt - SBAR form rt - Leadership Thank You Letter rt Critical care time excluding procedures: 19:50 Critical care time: Bedside Care: 30 minutes, Consultation: 5 minutes. Total time: 35 rt minutes Signatures: Dispatcher [employer] Yoli Gu RN RN lg3 Anisa Huerta RN RN ld1 Froy Melgar MD MD rt Laurie Ocampo rv1 Mihai Haynes, RN RN bm8 Corrections: (The following items were deleted from the chart) 18:06 18:06 BLOOD CULTURE*+BA.LAB.BRZ ordered. EDMS EDMS 18:06 18:06 CBC+H.LAB.BRZ ordered. EDMS EDMS 18:06 18:06 COMPREHENSIVE METABOLIC PANEL+C.LAB.BRZ ordered. EDMS EDMS 18:06 18:06 LACTATE+C.LAB.BRZ ordered. EDMS EDMS 18:06 18:06 PROTIME (+INR)+COAG.LAB.BRZ ordered. EDMS EDMS 18:06 18:06 PTT, ACTIVATED+COAG.LAB.BRZ ordered. EDMS EDMS 18:06 18:06 Troponin High Sensitivity+C.LAB.BRZ ordered. EDMS EDMS 18:06 18:06 PROBNP+C.LAB.BRZ ordered. EDMS EDMS 18:06 18:06 Chest Single View+RAD.RAD.BRZ ordered. EDMS EDMS 18:06 18:06 Arterial Blood Gas+RC.LAB.BRZ ordered. EDMS EDMS 20:11 19:49 rt rv1
--- NOTE | 2023-10-20 19:49 | ER ---
Nurse's Notes [facility] Name: Jay Patel Age: 78 yrs Sex: Male : 1945 Arrival Date: 10/20/2023 Time: 17:32 Bed 8 Private MD: Diagnosis: Pneumonia;Sepsis;Hypoxic respiratory failure Presentation: 10/19 17:45 Chief complaint: EMS states: toned out to patient home for altered mental status and ld1 low SpO2 of 86% RA. Coronavirus screen: At this time, the client does not indicate any symptoms associated with coronavirus-19. Ebola Screen: No symptoms or risks identified at this time. Initial Sepsis Screen: Does the patient meet any 2 criteria? No. Patient's initial sepsis screen is negative. Does the patient have a suspected source of infection? No. Patient's initial sepsis screen is negative. Risk Assessment: Do you want to hurt yourself or someone else? Patient reports no desire to harm self or others. Onset of symptoms was October 20, 2023. 17:45 Method Of Arrival: EMS: [facility] ld1 17:45 Acuity: YURIDIA 3 ld1 Triage Assessment: 17:46 General: Appears in no apparent distress. comfortable, Behavior is calm, cooperative, ld1 appropriate for age. Pain: Denies pain. EENT: No signs and/or symptoms were reported regarding the EENT system. Neuro: Level of Consciousness is awake, alert, obeys commands, Oriented to person, place, time, situation, Appropriate for age. Cardiovascular: Capillary refill < 3 seconds Patient's skin is warm and dry. Rhythm is sinus rhythm. Respiratory: Reports shortness of breath at rest cough that is non-productive, Airway is patent Respiratory effort is even, labored. Respiratory: Onset: The symptoms/episode began/occurred suddenly, the patient has moderate shortness of breath. GI: Abdomen is flat, non-distended. : No signs and/or symptoms were reported regarding the genitourinary system. Derm: No signs and/or symptoms reported regarding the dermatologic system. Musculoskeletal: No signs and/or symptoms reported regarding the musculoskeletal system. Historical: - Allergies: 17:46 Bactrim; ld1 17:46 PENICILLINS; ld1 - Home Meds: 18:40 alprazolam 0.5 mg Oral tablet 1 tab daily [Active]; escitalopram oxalate 10 mg oral ld1 tablet 1 tab daily [Active]; prednisone 1 mg oral tablet daily [Active]; atorvastatin 10 mg oral tablet 1 tab daily [Active]; omeprazole 40 mg oral capsule,delayed release (e.c.) 1 cap daily [Active]; baclofen 10 mg Oral tablet 1 tab 4 times per day [Active]; tamsulosin 0.4 mg oral capsule 1 cap daily [Active]; hydrocodone-acetaminophen 7.5-325 mg Oral tablet 1 tab 3 times per day [Active]; - PMHx: 18:43 Anxiety; BPH; Depressive disorder; Hypercholesterolemia; ld1 - Immunization history:: Adult Immunizations up to date. - Infectious Disease History:: Denies. - Social history:: Smoking status: Patient denies any tobacco usage or history of. - Family history:: not pertinent. Screenin:[address] [facility] ED Fall Risk Assessment (Adult) History of falling in the last 3 months, ld1 including since admission No falls in past 3 months (0 pts). Abuse screen: Denies threats or abuse. Denies injuries from another. Nutritional screening: No deficits noted. Tuberculosis screening: No symptoms or risk factors identified. Assessment: 17:48 Reassessment: See triage assessment. Cardiovascular: Capillary refill < 3 seconds ld1 Patient's skin is warm and dry. Respiratory: Airway is patent Respiratory effort is even, labored, Breath sounds are diminished bilaterally. 18:43 Reassessment: Patient appears in no apparent distress at this time. No changes from ld1 previously documented assessment. 19:08 General: Appears in no apparent distress. comfortable, Behavior is quiet. Pain: Denies bm8 pain. Neuro: Level of Consciousness is pt responds to verbal open eyes when speaking with him.. Cardiovascular: Capillary refill < 3 seconds Patient's skin is warm and dry. Respiratory: Patient placed on BiPAP: Respiratory Rate: 16 Breath sounds are diminished in right upper lobe, right middle lobe and right lower lobe. GI: No deficits noted. No signs and/or symptoms were reported involving the gastrointestinal system. : No deficits noted. No signs and/or symptoms were reported regarding the genitourinary system. EENT: No deficits noted. No signs and/or symptoms were reported regarding the EENT system. 19:52 General: Appears in no apparent distress. comfortable, Behavior is calm. Pain: Denies lg3 pain. Neuro: Level of Consciousness is awake, alert, confused, Oriented to person, place. Cardiovascular: No deficits noted. Denies chest pain, shortness of breath, Heart tones S1 S2 present Capillary refill < 3 seconds Clubbing of nail beds is absent JVD is absent Patient's skin is warm and dry. Respiratory: Airway is patent Respiratory effort is even, unlabored, Respiratory pattern is regular, symmetrical, Patient placed on BiPAP: Respiratory Rate: 16. GI: No deficits noted. No signs and/or symptoms were reported involving the gastrointestinal system. Abdomen is flat, non-distended. : Hayes in place Genitalia appear normal Hayes noted with no drainage system in place. provider notified. EENT: No deficits noted. No signs and/or symptoms were reported regarding the EENT system. Derm: No signs and/or symptoms reported regarding the dermatologic system. Skin is intact, is fragile, is thin, Skin is dry, Skin is normal, Skin temperature is warm. Musculoskeletal: No deficits noted. Circulation, motion, and sensation intact. Range of motion: intact in all extremities. Vital Signs: 17:45 BP 106 / 64; Pulse 96; Resp 23; Temp 97.9(TE); Pulse Ox 100% on 15 lpm Non-rebreather ld1 mask; Weight 51.26 kg; Height 5 ft. 6 in. ; Pain 0/10; 18:03 Pulse Ox 88% on 10 lpm Non-rebreather mask; ld1 18:39 BP 92 / 59; Pulse 84; Resp 16; Pulse Ox 99% on 15 lpm BiPAP; ld1 19:52 BP 103 / 70; Pulse 81; Resp 19 S; Pulse Ox 99% on BiPAP; lg3 17:45 Body Mass Index 18.24 (51.26 kg, 167.64 cm) ld1 17:45 Pain Scale: Adult ld1 18:03 Notified ERP and Respiratory ld1 ED Course: 17:45 Patient arrived in ED. ld1 17:46 Froy Melgar MD is Attending Physician. rt 17:46 Triage completed. ld1 17:46 Arm band placed on right wrist. ld1 17:48 Patient has correct armband on for positive identification. Placed in gown. Bed in low ld1 position. Call light in reach. Side rails up X2. monitoring manager on. Pulse ox on. NIBP on. Door closed. Noise minimized. Warm blanket given. 17:48 No provider procedures requiring assistance completed. ld1 17:49 Vincent Reyes, RN is Primary Nurse. bp 18:17 Blood Culture Adult (2) Sent. ll1 18:29 ABG Sent. ld1 18:29 Blood Culture Adult (2) Sent. ld1 18:29 Lactate w/ 2H reflex if indic. Sent. ld1 18:46 Chest Single View XRAY In Process Unspecified. EDMS 18:50 Warm blanket given. ld1 19:08 Report received from sharif Kaur. bm8 19:08 Inserted saline lock: 20 gauge in right antecubital area, using aseptic technique. O2 bm8 via on bipap, Response to oxygen therapy: symptoms improved. 19:48 Nate Washington MD is Hospitalizing Provider. rt 19:52 Cleaned of incontinence. Linen changed. lg3 20:38 Provided Education on: admission, bipap. vc1 20:38 Patient admitted, IV remains in place. vc1 Administered Medications: 18:29 Drug: Cefepime IVPB 2 grams IVPB at 200 ml/hr once over 30 mins; (mix in NS 100 mL) ld1 Route: IVPB; Rate: 200 ml/hr; Infused Over: 30 mins; Site: right upper arm; 19:03 Follow up: Response: No adverse reaction; IV Status: Completed infusion; IV Intake: bm8 100ml 18:38 Drug: DuoNeb Nebulize (3:1) (2.5 mg - 0.5 mg) 3 ml Nebulizer once Route: Nebulizer; ld1 19:03 Follow up: Response: No adverse reaction bm8 19:03 Drug: vancoMYCIN IVPB 1 grams IVPB once over 2 hrs Route: IVPB; Infused Over: 2 hrs; bm8 Site: right antecubital; 19:05 Drug: NS 0.9% IV 500 ml IV at bolus once Route: IV; Rate: bolus; Site: right bm8 antecubital; 19:49 Follow up: Response: No adverse reaction; IV Status: Completed infusion; IV Intake: lg3 500ml 19:48 Drug: NS 0.9% IV 500 ml IV at bolus once Route: IV; Rate: bolus; Site: right lg3 antecubital; 19:58 Drug: Albumin IVPB 25 grams 100 ml IVPB once; (Note: Albumin 25% concentration) Volume: lg3 100 ml; Route: IVPB; Site: right antecubital; Medication: 19:08 VIS not applicable for this client. bm8 Intake: 19:03 IV: 100ml; Total: 100ml. bm8 19:49 IV: 500ml; Total: 600ml. lg3 Outcome: 19:49 Decision to Hospitalize by Provider. rt 20:38 Admitted to ICU accompanied by nurse, accompanied by tech, via stretcher, room -4, on vc1 monitor, with chart, Report called to bedside report 20:38 Condition: stable 20:38 Instructed on the need for admit, 20:39 Patient left the ED. vc1 Signatures: Dispatcher [employer] EDVincent Buckley, RN RN Yoli Barboza, RN RN lg3 Dania Barahona, RN RN ll1 Anisa Huerta RN RN macho1 Sarah Gibbons RN RN vc1 Froy Melgar MD MD rt Mihai Haynes, RN RN bm8
--- NOTE | 2023-10-20 20:09 | P.HP ---
Certification for Inpatient Patient admitted to: Inpatient With expected LOS: >2 Midnights Practitioner: I am a practitioner with admitting privileges, knowledge of patient current condition, hospital course, and medical plan of care. Services: Services provided to patient in accordance with Admission requirements found in Title 42 Section 412.3 of the Code of Federal Regulations Patient History Date of Service: 10/21/23 Reason for admission: SOB History of Present Illness: 78 yrs old Male with past medical history of hypertension hyperlipidemia, depression, anxiety, BPH who was brought to ER with confusion and cough and was brought with altered mental status. Patient is a poor historian hence most of the history is obtained from the chart review and also talking with the ER physician. Patient at the time of my interview is on BiPAP and cannot offer any history. Patient presented to the ED with confusion, altered mental status. Patient states that he was sleeping more . Does have a cough. Denies other acute complaints at this time, Patient had a workup in the ER and was noted to have right lower lobe pneumonia and acute hypoxic respiratory failure and was respiratory distress and was placed on BiPAP Allergies No Known Allergies Allergy (Unverified 07/16/18 09:44) Home medications list reviewed: Yes Home Medications: ALPRAZolam [Xanax] 0.5 mg PO DAILY 10/20/23 Atorvastatin Calcium [Lipitor] 10 mg PO BEDTIME 10/20/23 Baclofen 10 mg PO Q6HP PRN 10/20/23 Escitalopram Oxalate [Lexapro] 10 mg PO DAILY 10/20/23 Hydrocodone Bit/Acetaminophen [Hydrocodon-Acetaminoph 7.5-325] 1 each PO TID 10/20/23 Multivitamin 1 each PO DAILY 10/20/23 Omeprazole [Prilosec] 40 mg PO DAILY 10/20/23 Tamsulosin [Flomax] 0.4 mg PO DAILY 10/20/23 Vitamin D3 400 Iu 1 tab PO DAILY 10/20/23 predniSONE [Deltasone] 10 mg PO DAILY 10/20/23 - Past Medical/Surgical History Diabetic: No Past Medical History: Reviewed- Non-Contributory -: htn -: high cholesterol -: spinal stenosis -: enlarged prostate -: urinary retention -: arthritis Past Surgical History: Reviewed- Non-Contributory - Family History Family History: Reviewed- Non-Contributory - Social History Smoking Status: Former smoker Alcohol use: No CD- Drugs: No Caffeine use: No Review of Systems is unable to be obtained Physical Examination - Vital Signs Temperature: 97.9 F Blood Pressure: 98/56 Pulse: 86 Respirations: 20 Pulse Ox (%): 94 - Physical Exam General: Severe distress, Confused HEENT: Atraumatic, Normocephalic Neck: Supple Respiratory: Diminished, Crackles/rales, Expiratory wheezes Cardiovascular: Regular rate/rhythm, Normal S1 S2, No rubs Capillary refill: <2 Seconds Gastrointestinal: Soft and benign, W/out hepatosplenomegaly Musculoskeletal: No clubbing, No swelling Integumentary: No rashes, No breakdown Neurological: Other (Confused , Could not assess) Lymphatics: No axilla or inguinal lymphadenopathy - Studies Laboratory Data (last 24 hrs) 10/20/23 10/20/23 10/20/23 18:13 18:13 18:13 WBC 12.30 H Hgb 12.8 L Hct 38.4 L Plt Count 316 PT 15.6 H INR 1.43 APTT 36.1 Sodium 138 Potassium 3.9 BUN 65 H Creatinine 2.00 H Glucose 115 H Total Bilirubin 0.7 AST 13 L ALT 16 Alkaline Phosphatase 103 Assessment and Plan - Problems (Diagnosis) (1) Respiratory distress Current Visit: No Status: Acute Plan: Acute respiratory distress Hypoxic respiratory failure acute Patient is on BiPAP ABG findings noted Admit to ICU Bronchodilators as needed Started on IV steroids Right lower lobe pneumonia Started on IV antibiotics Will obtain cultures Continue antibiotic as resuscitated Will get a repeat x-ray chest Elevated BNP Will get an echocardiogram Diuretics if BP stable Hypotension Possible severe sepsis Will trend lactic acid levels Continue antibiotics 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
[2023-10-20 20:14] LABS: Band Neutrophils 25 % (0-1); Differential Total Cells Count 100; Lymphocytes 10 % (15-42); Metamyelocytes 1 % (0-0); Monocytes 8 % (0-10); Segmented Neutrophils 56 % (40-80)
[2023-10-20 20:15] LABS: Blood Morphology Comment NOT SEEN (NOT SEEN); Platelet Estimate ADEQ
[2023-10-20] MEDS: ALBUMIN HUMAN 25% 50 ML IV ONE (20:18)
[2023-10-20] MEDS: VANCOMYCIN 1 GM in NA CHLORIDE 0.9% 250 ML IVPB SCH (21:00)
[2023-10-20] MEDS: CEFEPIME 1 GM in NA CHLORIDE 0.9% 100 ML IV SCH (21:00)
[2023-10-21] MEDS: FUROSEMIDE 20 MG/ 2ML VIAL IV SCH (00:39)
[2023-10-21] MEDS: ALBUTEROL 2.5 MG/3 ML NEB SOL NEB PRN (01:29)
[2023-10-21] MEDS: IPRATROPIUM BROM 0.5MG/2.5ML NEB SCH (01:29)
[2023-10-21] MEDS ORDERED: ALBUTEROL 2.5 MG/3 ML NEB SOL ONE (01:37)
[2023-10-21] MEDS ORDERED: IPRATROPIUM BROM 0.5MG/2.5ML ONE ×4 (01:38→19:44)
[2023-10-21 05:02] LABS: Absolute Lymphocytes (CBC) 0.3 K/uL (0.7-4.9); Absolute Monocytes 0.6 K/uL (0.1-1.3); Basophils % 0.1 % (0-1.3); Eosinophils % 0.4 % (0-4.4); Hematocrit 35.7 % (39.6-49.0); Hemoglobin 11.8 g/dL (13.6-17.9); Lymphocytes % 2.6 % (15.3-44.8); MCH 32.1 pg (27.0-35.0); MCHC 33.1 g/dL (32.0-36.0); MCV 96.7 fL (80-100); MPV 7.6 fL (7.6-11.3); Monocytes % 6.2 % (3.3-12.3); Platelets 287 thou/uL (152-406); RBC Red Blood Cell Count 3.69 M/uL (4.33-5.43); Red Cell Distribution Width 15.1 % (12.1-15.2)
[2023-10-21 05:04] LABS: Neutrophils % 90.7 % (41.7-73.7)
[2023-10-21 05:13] LABS: Albumin 2.4 g/dL (3.4-5.0); Albumin/Globulin Ratio 0.6 (1.1-1.8); Bilirubin Total 0.8 mg/dL (0.2-1.0); Globulin 3.8 g/dL (2.3-3.5); Protein, Total 6.2 g/dL (6.4-8.2)
[2023-10-21 05:51] LABS: Specific Gravity 1.028 (1.005-1.030); Sqamous Epithelial <5 /HPF (None Seen); Urine Bacteria <20 /HPF (<20); Urine Bilirubin NEGATIVE (Negative); Urine Blood Trace (Negative); Urine Clarity Turbid (Clear); Urine Color Yellow (Yellow); Urine Culture Reflex Order NOT NEEDED; Urine Glucose NEGATIVE (Negative); Urine Ketones 1+ (Negative); Urine Microscopic Reflex YN ORDER UMIC; Urine Mucus Slight /HPF (None Seen); Urine Nitrite NEGATIVE (Negative); Urine Protein 1+ (Negative); Urine RBC None Seen /HPF (None Seen); Urine Urobilinogen Normal (Normal); Urine WBC <5 /HPF (<5)
[2023-10-21] MEDS: ENOXAPARIN 30 MG/0.3 ML SQ SCH (08:39)
[2023-10-21] MEDS: VANCOMYCIN 0.75 GM in NA CHLORIDE 0.9% 150 ML IVPB SCH (08:57)
--- NOTE | 2023-10-21 11:03 | P.PN ---
Subjective Date of Service: 10/21/23 Chief Complaint: SOB Pt is resting comfortably in bed. He is using BIPAP. Waiting for ABG. Pt is getting iv abx for Pneumonia. No other complaints. Review of Systems General: Unremarkable Eyes: Unremarkable ENT: Unremarkable Respiratory: SOB with Excertion Cardiovascular: Unremarkable Gastrointestinal: Unremarkable Genitourinary: Unremarkable Musculoskeletal: Unremarkable Integumentary: Unremarkable Neurological: Unremarkable Lymphatics: Unremarkable Physical Examination - Vital Signs Temperature: 97.2 F Blood Pressure: 116/63 Pulse: 96 Respirations: 32 Pulse Ox (%): 96 - Physical Exam General: Alert, In no apparent distress, Oriented x3 HEENT: Atraumatic, Normocephalic, PERRLA Neck: Supple, 2+ carotid pulse no bruit Respiratory: Clear to auscultation bilaterally, Diminished Cardiovascular: No edema, Normal pulses, Regular rate/rhythm, Normal S1 S2 Capillary refill: <2 Seconds Gastrointestinal: Normal bowel sounds, Soft and benign, Non-distended Musculoskeletal: No clubbing, No swelling Integumentary: No rashes, No breakdown Neurological: Normal gait, Normal speech, Normal strength at 5/5 x4 extr Lymphatics: No axilla or inguinal lymphadenopathy - Studies Laboratory Data (last 24 hrs) 10/20/23 10/20/23 10/20/23 18:13 18:13 18:13 WBC 12.30 H Hgb 12.8 L Hct 38.4 L Plt Count 316 PT 15.6 H INR 1.43 APTT 36.1 Sodium 138 Potassium 3.9 BUN 65 H Creatinine 2.00 H Glucose 115 H Total Bilirubin 0.7 AST 13 L ALT 16 Alkaline Phosphatase 103 Assessment And Plan - Plan Acute respiratory failure with hypoxia: Will continue BIPAP, albuterol neb, steroid and iv abx. Consulted Pulm. Will wean off BIPAP as tolerated. Right lower lobe pneumonia: Will continue iv abx and follow up blood cx. Elevated BNP: BNP is 1945. Will f/u Echo to check EF. Hypotension: Will keep MAP > 65. Low threshold to started pressor. Will continue iv abx. Lactatet is 1.4 Acute kidney injury on CKD stage II: Cr is 1.55 <- 2.0. Will avoid nephrotoxins and monitor renal function. GI ppx: protonix DVT ppx: SCD Code: full
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
--- NOTE | 2023-10-21 16:39 | P.CNS ---
Date of Consult: 10/21/23 Reason for Consult: What in mental status and right-sided pleural effusion Chief Complaint: SOB History of Present Illness: Patient is 78 years of age admitted with altered mental status and significant right-sided pleural effusion patient is confused very poor historian Allergies No Known Allergies Allergy (Unverified 07/16/18 09:44) Home Medications: ALPRAZolam [Xanax] 0.5 mg PO DAILY 10/20/23 Atorvastatin Calcium [Lipitor] 10 mg PO BEDTIME 10/20/23 Baclofen 10 mg PO Q6HP PRN 10/20/23 Escitalopram Oxalate [Lexapro] 10 mg PO DAILY 10/20/23 Hydrocodone Bit/Acetaminophen [Hydrocodon-Acetaminoph 7.5-325] 1 each PO TID 10/20/23 Multivitamin 1 each PO DAILY 10/20/23 Omeprazole [Prilosec] 40 mg PO DAILY 10/20/23 Tamsulosin [Flomax] 0.4 mg PO DAILY 10/20/23 Vitamin D3 400 Iu 1 tab PO DAILY 10/20/23 predniSONE [Deltasone] 10 mg PO DAILY 10/20/23 - Past Medical/Surgical History Diabetic: No -: htn -: high cholesterol -: spinal stenosis -: enlarged prostate -: urinary retention -: arthritis - Social History Smoking Status: Former smoker Alcohol use: No CD- Drugs: No Caffeine use: No Place of Residence: Home Review of Systems is unable to be obtained Physical Examination Temp Pulse Resp BP Pulse Ox 97.2 F 79 19 116/76 96 10/21/23 11:04 10/21/23 16:00 10/21/23 15:00 10/21/23 15:00 10/21/23 16:00 General: Delirious Neck: Supple Respiratory: Diminished Cardiovascular: No edema (On the right side), Regular rate/rhythm, Normal S1 S2 Gastrointestinal: Normal bowel sounds, Soft and benign, Non-distended Laboratory Data (last 24 hrs) 10/20/23 10/20/23 10/20/23 18:13 18:13 18:13 WBC 12.30 H Hgb 12.8 L Hct 38.4 L Plt Count 316 PT 15.6 H INR 1.43 APTT 36.1 Sodium 138 Potassium 3.9 BUN 65 H Creatinine 2.00 H Glucose 115 H Total Bilirubin 0.7 AST 13 L ALT 16 Alkaline Phosphatase 103 - Problems (1) Pleural effusion Current Visit: Yes Status: Acute Plan: Patient is 78 years of age amended without the mental status hypoxemia mild renal insufficiency has significant right-sided pleural effusion with Mildly elevatedl white count differential diagnosis includes a pneumonia or a pulmonary embolism plan to anticoagulated right now ultrasound of the chest bilateral decubitus of the chest/Since admission is white count has decreased renal function is also improved chest x-ray CT scan revealed echocardiogram ordered continue with LasixCt scan report [id number] Loculated moderate size right pleural effusion with airspace opacity in the right lung base which would be favored to represent pneumonia.Several enlarged lymph nodes are present in the mediastinum. Pretracheal location measuring 18 mm, pretracheal/ precarinal measuring 10 mm.Mild linear atelectasis in the left lung base. The left lung is emphysematous CT scan report CT scan of the chest reviewed by me very difficult to discern structures of the chest he may have underlying inoculations ultrasound will certainly help continue with present antibiotics
--- NOTE | 2023-10-21 16:46 | P.CNS ---
Date of Consult: 10/21/23 Chief Complaint: SOB Allergies No Known Allergies Allergy (Unverified 07/16/18 09:44) Home Medications: ALPRAZolam [Xanax] 0.5 mg PO DAILY 10/20/23 Atorvastatin Calcium [Lipitor] 10 mg PO BEDTIME 10/20/23 Baclofen 10 mg PO Q6HP PRN 10/20/23 Escitalopram Oxalate [Lexapro] 10 mg PO DAILY 10/20/23 Hydrocodone Bit/Acetaminophen [Hydrocodon-Acetaminoph 7.5-325] 1 each PO TID 10/20/23 Multivitamin 1 each PO DAILY 10/20/23 Omeprazole [Prilosec] 40 mg PO DAILY 10/20/23 Tamsulosin [Flomax] 0.4 mg PO DAILY 10/20/23 Vitamin D3 400 Iu 1 tab PO DAILY 10/20/23 predniSONE [Deltasone] 10 mg PO DAILY 10/20/23 - Past Medical/Surgical History Diabetic: No -: htn -: high cholesterol -: spinal stenosis -: enlarged prostate -: urinary retention -: arthritis - Social History Smoking Status: Former smoker Alcohol use: No CD- Drugs: No Caffeine use: No Place of Residence: Home Physical Examination Temp Pulse Resp BP Pulse Ox 97.2 F 79 19 116/76 96 10/21/23 11:04 10/21/23 16:00 10/21/23 15:00 10/21/23 15:00 10/21/23 16:00 Laboratory Data (last 24 hrs) 10/20/23 10/20/23 10/20/23 18:13 18:13 18:13 WBC 12.30 H Hgb 12.8 L Hct 38.4 L Plt Count 316 PT 15.6 H INR 1.43 APTT 36.1 Sodium 138 Potassium 3.9 BUN 65 H Creatinine 2.00 H Glucose 115 H Total Bilirubin 0.7 AST 13 L ALT 16 Alkaline Phosphatase 103
--- NOTE | 2023-10-21 17:55 | RAD REPORT ---
EXAM DESCRIPTION: RAD - Chest Lateral Decubitus - 10/21/2023 5:48 pm CLINICAL HISTORY: R effusion COMPARISON: Chest Single View dated 10/20/2023 FINDINGS: There is a moderate size right pleural effusion, however it appears largely loculated. No measurable left-sided effusion.
--- NOTE | 2023-10-21 19:21 | RAD REPORT ---
EXAM DESCRIPTION: US - Chest - 10/21/2023 7:14 pm CLINICAL HISTORY: R sided effusion COMPARISON: Chest Lateral Decubitus dated 10/21/2023 FINDINGS: The right pleural effusion demonstrates head significant loculation and a thickened rind, compatible a significantly loculated effusion.
[2023-10-21] MEDS: ENOXAPARIN 60 MG/0.6 ML SQ SCH (21:11)
[2023-10-22] MEDS ORDERED: IPRATROPIUM BROM 0.5MG/2.5ML ONE ×2 (00:38→07:47)
[2023-10-22 04:39] LABS: Absolute Lymphocytes (CBC) 0.4 K/uL (0.7-4.9); Absolute Monocytes 0.9 K/uL (0.1-1.3); Absolute Neutrophil 17.6 K/uL (1.8-8.0); Basophils % 0.1 % (0-1.3); Eosinophils % 0.1 % (0-4.4); Hematocrit 39.1 % (39.6-49.0); Hemoglobin 12.6 g/dL (13.6-17.9); Lymphocytes % 2.1 % (15.3-44.8); MCH 31.1 pg (27.0-35.0); MCHC 32.3 g/dL (32.0-36.0); MCV 96.3 fL (80-100); MPV 7.6 fL (7.6-11.3); Monocytes % 4.9 % (3.3-12.3); Platelets 344 thou/uL (152-406); RBC Red Blood Cell Count 4.05 M/uL (4.33-5.43); Red Cell Distribution Width 15.3 % (12.1-15.2)
[2023-10-22 04:41] LABS: Neutrophils % 92.8 % (41.7-73.7)
[2023-10-22 04:51] LABS: Anion Gap 14.1 mEq/L (5.0-15.0); Magnesium 1.9 mg/dL (1.6-2.4); Phosphorus 3.9 mg/dL (2.5-4.9); Potassium 3.1 mEq/L (3.5-5.1)
[2023-10-22 06:20] VITALS: BMI 17.5
--- NOTE | 2023-10-22 08:19 | P.PN ---
Subjective Date of Service: 10/22/23 Chief Complaint: loculated effusion Subjective: Improving (Doign better more alert and responsive patient is complaining of some right-sided chest discomfort) Review of Systems General: Weakness Respiratory: Shortness of Breath, Pleuritic Pain Physical Examination - Vital Signs Temperature: 97 F Blood Pressure: 109/73 Pulse: 100 Respirations: 27 Pulse Ox (%): 93 - Physical Exam General: Alert, In no apparent distress, Oriented x3 Respiratory: Clear to auscultation bilaterally, Diminished (On the right side) Cardiovascular: No edema, Normal pulses, Regular rate/rhythm Assessment And Plan - Current Problems (Diagnosis) (1) Pleural effusion Current Visit: Yes Status: Acute Plan: Is 78 years of age admitted with altered mental status right-sided significantly loculated pleural effusion confirmed by ultrasound but is chest x-rays his white count is elevated changed to Zosyn to [facility] for for decortication patient is a so far negative ultrasound report and chest x-ray reviewed case with the hosp italist
[2023-10-22] MEDS ORDERED: VANCOMYCIN 1 GM in NA CHLORIDE 0.9% 250 ML IVPB SCH (09:00)
[2023-10-22] MEDS: ESCITALOPRAM 20 MG TAB PO SCH (09:09)
[2023-10-22] MEDS ORDERED: TAMSULOSIN 0.4 MG SR CAP ONE (09:15)
[2023-10-22] MEDS ORDERED: NA CHLORIDE 0.9% 100 ML ONE (09:15)
[2023-10-22] MEDS ORDERED: PIPERACIL/TAZO 4.5 GM VIAL IV ONE (09:15)
[2023-10-22] MEDS ORDERED: POTASSIUM 25 MEQ EFFERV TAB ONE (09:15)
[2023-10-22] MEDS: PIPER TAZO 4.5 GM in NA CHLORIDE 0.9% 100 ML IV SCH (09:20)
[2023-10-22] MEDS: TAMSULOSIN 0.4 MG SR CAP PO SCH (09:21)
[2023-10-22] MEDS: POTASSIUM 25 MEQ EFFERV TAB PO ONE (09:21)
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
[2023-10-22 16:49] VITALS: O2SAT 92
[2023-10-22] MEDS: ENOXAPARIN 40 MG/0.4 ML SQ SCH (17:30)
[2023-10-22 18:27] VITALS: BP 115/78; TEMP 97.4
--- NOTE | 2023-10-23 07:19 | ECHO ---
HEIGHT: 5 ft 6 in WEIGHT: 108 lb 8 oz DATE OF STUDY: 10/22/[address]: Casper Gamez MD 2-DIMENSIONAL: YES M.MODE: YES DOPPLER: YES COLOR FLOW: YES TDS: PORTABLE: YES DEFINITY: BUBBLE STUDY: DIAGNOSIS: RULE OUT CONGESTIVE HEART FAILURE CARDIAC HISTORY: CATHERIZATION: NO SURGERY: NO PROSTHETIC VALVE: NO PACEMAKER: NO MEASUREMENTS (cm) DIASTOLIC (NORMALS) SYSTOLIC (NORMALS) IVSd 0.9 (0.6-1.2) LA Diam 2.3 (1.9-4.0) LVEF 60% LVIDd 3.5 (3.5-5.7) LVIDs 2.4 (2.0-3.5) %FS 31% LVPWd 1.0 (0.6-1.2) Ao Diam 3.5 (2.0-3.7) 2 DIMENSIONAL ASSESSMENT: RIGHT ATRIUM: NORMAL LEFT ATRIUM: NORMAL RIGHT VENTRICLE: NORMAL LEFT VENTRICLE: NORMAL TRICUSPID VALVE: MILD TRICUSPID REGURGITATION MITRAL VALVE: MILD MITRAL REGURGITATION PULMONIC VALVE: NORMAL AORTIC VALVE: MILD AORTIC INSUFFICIENCY PERICARDIAL EFFUSION: NONE AORTIC ROOT: NORMAL LEFT VENTRICULAR WALL MOTION: NORMAL DOPPLER/COLOR FLOW: SEE BELOW COMMENTS: 1. NORMAL LEFT VENTRICULAR EJECTION FRACTION 55-60% WITH NORMAL WALL MOTION 2. GRADE I DIASTOLIC DYSFUNCTION 3. MILD MITRAL REGURGITATION, TRICUSPID REGURGITATION, AORTIC INSUFFICIENCY 4. RIGHT VENTRICULAR SYSTOLIC PRESSURE IS 35-40 mmHg TECHNOLOGIST: EDUARDO THOMPSON
[2023-10-23] MEDS ORDERED: VANCOMYCIN 1 GM in NA CHLORIDE 0.9% 250 ML IVPB SCH (09:00)
--- NOTE | 2023-10-24 17:01 | EKG ---
Test Date: 2023-10-20 Test Time: 18:29:49 Mobile Home Installer: DEEPAK MEASUREMENT RESULTS: Intervals: Rate: 86 MN: 138 QRSD: 98 QT: 390 QTc: 466 [place]: P: 56 MN: 138 QRS: -8 T: 46 INTERPRETIVE STATEMENTS: Normal sinus rhythm Low voltage QRS Borderline ECG Compared to ECG 10/20/2023 17:46:28 Low QRS voltage now present Fusion complex(es) no longer present Left-axis deviation no longer present Myocardial infarct finding no longer present Electronically Signed On 10-24-23 16:47:04 CDT by Lucian Diego
--- NOTE | 2023-10-24 17:02 | EKG ---
Test Date: 2023-10-20 Test Time: 17:46:28 Midwife: DEEPAK MEASUREMENT RESULTS: Intervals: Rate: 93 MI: 138 QRSD: 84 QT: 380 QTc: 472 [place]: P: 57 MI: 138 QRS: -35 T: 32 INTERPRETIVE STATEMENTS: Sinus rhythm with fusion complexes Left axis deviation Inferior infarct, age undetermined Lateral injury pattern ACUTE AR Abnormal ECG Compared to ECG 04/29/2018 08:58:33 Fusion complex(es) now present Left-axis deviation now present Myocardial infarct finding now present Left anterior fascicular block no longer present Electronically Signed On 10-24-23 16:47:07 CDT by Lucian Diego
== END 2023-10-22 19:15 | disposition short-term general hospital (02) | DRG 871 ==
LOC: ER 17:32 → ERHOLD 19:45 → 3RD-ICU 20:33
PROVIDERS: ADMIT Family Medicine; ATTEND Hospitalist
PROC: 4A033R1 Measurement of Arterial Saturation, Peripheral, Percutaneous Approach (ICD-10-PCS; principal; 2023-10-20)
PROC: 5A09457 Assistance with Respiratory Ventilation, 24-96 Consecutive Hours, Continuous Positive Airway Pressure (ICD-10-PCS; 2023-10-21)
DX: A41.9 Sepsis, unspecified organism (principal); J18.9 Pneumonia, unspecified organism; J96.01 Acute respiratory failure with hypoxia; N17.9 Acute kidney failure, unspecified; G93.1 Anoxic brain damage, not elsewhere classified; Z68.1 Body mass index [BMI] 19.9 or less, adult; R65.20 Severe sepsis without septic shock; I12.9 Hypertensive chronic kidney disease with stage 1 through stage 4 chronic kidney disease, or unspecified chronic kidney disease; N18.2 Chronic kidney disease, stage 2 (mild); E87.6 Hypokalemia; E87.70 Fluid overload, unspecified; E78.00 Pure hypercholesterolemia, unspecified; N40.0 Benign prostatic hyperplasia without lower urinary tract symptoms; R63.6 Underweight; Z88.1 Allergy status to other antibiotic agents; Z88.0 Allergy status to penicillin; Z79.52 Long term (current) use of systemic steroids; Z79.899 Other long term (current) drug therapy; Z87.891 Personal history of nicotine dependence
CPT/HCPCS: 36415; 36600; 70450; 71045; 71046; 71250; 72125; 76604; 80048; 80053; 80202; 81001; 82805; 83605; 83735; 83880; 84100; 84484; 85025; 85610; 85730; 87040; 93005; 93306; 94640; 94660; 94760; 96361; 96365; 96375; 99285; J0692; J1650; J1940; J7040; J7050; J7613; J7644; P9047

== ENCOUNTER 2024-07-23 17:27 | Emergency (ER) | payer OTHER ==
[2024-07-23 18:11] LABS: Absolute Lymphocytes (CBC) 0.4 K/uL (0.7-4.9); Absolute Monocytes 0.5 K/uL (0.1-1.3); Absolute Neutrophil 11.6 K/uL (1.8-8.0); Basophils % 0.4 % (0-1.3); Eosinophils % 0.1 % (0-4.4); Hematocrit 37.5 % (39.6-49.0); Hemoglobin 12.6 g/dL (13.6-17.9); Lymphocytes % 2.9 % (15.3-44.8); MCH 33.1 pg (27.0-35.0); MCHC 33.6 g/dL (32.0-36.0); MCV 98.6 fL (80-100); MPV 7.1 fL (7.6-11.3); Monocytes % 4.3 % (3.3-12.3); Neutrophils % 92.3 % (41.7-73.7); Platelets 372 thou/uL (152-406); Red Cell Distribution Width 14.2 % (12.1-15.2)
[2024-07-23 18:23] LABS: PT Prothrombin Time 12.9 SECONDS (9.4-12.5); PTT, Activated Partial Thromb 35.1 SECONDS (24.3-36.9); Protime INR 1.23
--- NOTE | 2024-07-23 18:43 | RAD REPORT ---
EXAMINATION: ONE VIEW CHEST XR CLINICAL INDICATION: Male, 78 years old.,AMS TECHNIQUE: Frontal chest projection is submitted. Examination is limited by patient positioning and t echnique. COMPARISON: 10/20/2023 FINDINGS: Improvement of right basilar pleural-parenchymal opacification. Residual mild medial right basal stre aky opacities could reflect atelectasis. No pneumothorax or sizable effusion. The heart is normal in size. Mediastinal contours are unchanged with tortuosity of the thoracic aorta. IMPRESSION: No acute intrathoracic abnormalities. Findings as above.
[2024-07-23 18:58] LABS: Albumin 3.4 g/dL (3.4-5.0); Albumin/Globulin Ratio 0.9 (1.1-1.8); Anion Gap 9.8 mEq/L (5.0-15.0); Bilirubin Total 0.9 mg/dL (0.2-1.0); Globulin 3.6 g/dL (2.3-3.5); Potassium 3.8 mEq/L (3.5-5.1)
[2024-07-23] MEDS ORDERED: NA CHLORIDE 0.9% 1,000 ML ONE (20:09)
[2024-07-23 20:18] LABS: Blood Morphology Comment NOT SEEN (NOT SEEN); Platelet Estimate ADEQ; White Blood Cell Scan OK (OK)
[2024-07-23] MEDS ORDERED: CEFTRIAXONE 2000 MG/VIAL ONE (20:45)
[2024-07-23] MEDS ORDERED: NA CHLORIDE 0.9% 100 ML ONE ×2 (20:45→22:03)
[2024-07-23] MEDS ORDERED: MANNITOL 25% 50 ML IV ONE (20:55)
--- NOTE | 2024-07-23 20:58 | RAD REPORT ---
EXAM: CT Head Brain Wo Cont HISTORY: CONFUSED COMPARISON: 10/21/2023 TECHNIQUE: Multiple contiguous axial images were obtained for a CT of the brain without contrast. Sag ittal and coronal reformats were performed. One or more of the following dose reduction techniques were used: Automated exposure control, adjus tment of the mA and kV according to patient size, and iterative reconstruction. Unless otherwise specified, incidental findings do not require dedicated imaging follow-up. FINDINGS: Mixed density left cerebral convexity subdural hematoma, measuring up to 2.1 cm in thickness along th e left frontal convexity. Predominantly hyperdense left posterior falcine and supratentorial component, measuring up to 1.5 cm in thickness. Left high parafalcine mixed density component measuri ng 5 mm in thickness. Possible right component along the tentorium near the midline measuring 3 mm in thickness. No evidence of intraparenchymal hemorrhage. Significant mass effect upon the left cerebral hemisphere, with effacement of the left lateral ventri chaparro except for a portion of the body, leftward midline shift, measuring approximately 1.9 cm, and effacement of the suprasellar and interpeduncular cisterns. Dilation of the right lateral ventricle s uggesting entrapment, with peritrigonal transependymal CSF flow . The brain shows no evidence of acute territorial infarct or intraparenchymal hemorrhage. The calvarium is intact. Patchy opacification of the paranasal sinuses with wall left kidney agenesis especially along the sphenoid sinuses suggesting chronic sinusitis. Mastoid air cells are essentially clear. IMPRESSION: Extensive predominantly left cerebral convexity mixed density subdural hematoma, with thickest compon ent along the left frontal convexity and left tentorium, measuring 2.1 cm and 1.5 cm respectively. Prominent mass effect, with 1.9 cm rightward midline shift, evidence of early transtentorial herniati on with effacement of the suprasellar and interpeduncular cistern, and entrapment of the right lateral ventricle. THIS REPORT CONTAINS FINDINGS THAT MAY BE CRITICAL TO PATIENT CARE. The findings were verbally commun icated via telephone to Nick Murphy MD on 07/23/2024 8:54 PM.
[2024-07-23] MEDS ORDERED: MANNITOL 25% 150 ML IV ONE (21:04)
[2024-07-23] MEDS ORDERED: NA CHLORIDE 0.9% 500 ML ONE (21:04)
--- NOTE | 2024-07-23 21:13 | EDPHYS ---
Physician Documentation [facility] Name: Jay Patel Age: 78 yrs Sex: Male : 1945 Arrival Date: 07/23/2024 Time: 17:27 Bed 3 Private MD: ED Physician Nick Murphy HPI: 07/23 20:55 This 78 yrs old Male presents to ER via EMS with complaints of Altered Mental Status. bo1 20:55 The patient presents with decreased mental status, Pt was found by EMS on the floor. bo1 The pt's spouse had called "[id number]" due to not seeing her , the pt, since last night. EMS found the pt in SVT, rate over 200 with 1 dose of adenosine 6mg IV given with cardioversion. The rhythm strip or EKG prehospital was not made available. Pt is indeed AMS \\T\\ room #3. Onset: The symptoms/episode began/occurred gradually, last night. Possible causes: alcohol, Pt the spouse pt has been drinking 80 proof ETOH for the past few days. Patient's baseline: Neuro: alert and fully oriented, Motor: no deficits, Ambulation: walks without assistance, Speech: normal, The patient has a previous history of Lung CA per the spouse. There's no independent history other than EMS findings at the house where the pt was found AMS on the floor with the spouse making various allegations of a personal nature. Historical: - Allergies: 17:35 Bactrim; ph 17:35 PENICILLINS; ph - PMHx: 17:35 Anxiety; BPH; depressive disorder; Hypercholesterolemia; ph - Immunization history:: Adult Immunizations unknown. - Infectious Disease History:: unable to obtain. - Social history:: Smoking status: unknown. ROS: 20:59 Unable to obtain ROS due to altered mental status, patient's speech is bo1 incomprehensible, Pt will acknowledge the presence of the provider but cannot answer coherently, 21:15 Constitutional: Negative for fever, chills, and weight loss per spouse bo1 21:15 Constitutional: Negative for fever, Exam: 21:00 Constitutional: This is a well developed, well nourished patient who is somnolent in bo1 mild acute distress. 21:00 Constitutional: The patient appears non-toxic, Pt appears frail with a "yellowish" discoloration around the nose and upper lip/mouth 21:00 Head/face: Exam is negative for gonzalez signs, erythema, laceration(s), raccoon eyes, swelling, 21:00 Eyes: Pupils: right pupil is approximately 2 mm(s), left pupil is approximately 2 mm(s), 21:00 Neck: External neck: is normal, no acute changes, 21:00 Cardiovascular: Rate: normal, Rhythm: regular, Low voltage, 21:00 Respiratory: the patient does not display signs of respiratory distress, Respirations: normal, no acute changes, Breath sounds: decreased breath sounds, that are mild, are located in both bases, 21:00 Abdomen/GI: Inspection: abdomen appears normal, Scaphoid, 21:00 Musculoskeletal/extremity: Extremities: no acute changes, 21:00 Skin: no rash present. 21:00 Neuro: Orientation: unable to test, Mentation: unable to follow commands, somnolent, seizure activity, is not displayed by the patient, Abnormal movements: there are no abnormal movements, 21:10 ECG was reviewed by the Attending Physician. bo1 21:10 Psych: exam not indicated, 21:13 Constitutional: This is a well developed, well nourished patient who is resting, rn awakens to voice and tactile stimulation, no acute distress Head/Face: No sign of trauma or external hematoma Eyes: Pupils equally round and reactive Chest/axilla: No rib tenderness or crepitus Cardiovascular: Regular rate and rhythm. No pulse deficits. Respiratory: No increased work of breathing, no retractions or nasal flaring. Abdomen/GI: Soft, non-tender MS/ Extremity: Pulses equal, no cyanosis. Neurovascular intact. No gross deformities of extremities Neuro: Awakens to voice, moves all 4 extremities, nonfocal neuroexam. Answers all questions appropriately but a little slow Vital Signs: 17:30 BP 149 / 83; Pulse 69; Resp 18; Temp 98.8; Pulse Ox 97% on R/A; Weight 49 kg; Height 5 ph ft. 6 in. ; 18:34 BP 135 / 90; Pulse 76; Resp 20; Pulse Ox 96% on 2 lpm NC; ph 19:48 BP 155 / 83; Pulse 78; Resp 16 S; Pulse Ox 96% on R/A; kc6 21:28 BP 138 / 88; Pulse 76; Resp 16; Pulse Ox 100% on 2 lpm NC; jb4 22:18 BP 150 / 74; Pulse 71; Resp 15; Pulse Ox 98% on 2 lpm NC; jb4 17:30 Body Mass Index 17.44 (49.00 kg, 167.64 cm) ph Clayton Coma Score: 21:00 Eye Response: to voice(3). Motor Response: withdraws from pain(4). Verbal Response: bo1 incomprehensible(2). Total: 9. 21:28 Eye Response: to voice(3). Motor Response: withdraws from pain(4). Verbal Response: jb4 confused(4). Total: 11. 22:18 Eye Response: to voice(3). Motor Response: withdraws from pain(4). Verbal Response: jb4 confused(4). Total: 11. MDM: 17:38 Medical Screening Exam initiated bo1 20:57 Discussion of test interpretation with radiology: I had a discussion with radiology asst regarding a test interpretation. Discussed case with Dr. Oleary, he agrees that there is subdural likely subacute and signs of early herniation.. ED course: Patient signed out to me at this time by Dr. Byrne, patient is altered, unknown if trauma, no infectious etiologies found at this time but elevated lactic acid and WBC. No reported seizures. CT head added to his workup. . ED course: CT head images reveal acute on chronic or subacute subdural on the left side per my interpretation.. ED course: After images of CT head obtained initiated transfer and ordered Hayes catheter as well as mannitol given signs of herniation. Patient is awake and talking, responsive to voice and moves all 4 extremities without focal findings. Blood pressure currently 155/83.. 21:13 Differential Diagnosis: electrolyte abnormality, intracranial bleed, pneumonia, rn seizure, UTI, volume depletion. Data reviewed: vital signs, nurses notes, lab test result(s), radiologic studies, CT scan, and as a result, I will admit patient. Consideration of Admission/Observation Patient was admitted/placed on observation. Escalation of care including admission/observation considered. Counseling: I had a detailed discussion with the patient and/or guardian regarding the historical points, exam findings, and any diagnostic results supporting the discharge/admit diagnosis, lab results, radiology results, the need to transfer to another facility, for higher level of care, [facility] not [facility] required specialist. ED course: I personally spent 35 minutes engaged in work directly related to the individual patient's care. This does not include any time spent performing procedures. The patient has been deemed critically ill because of acute altered mental status with CT head showing large subdural hematoma with midline shift and evidence of possible herniation requiring organization of transfer, [facility], and administration of mannitol.. 21:13 Differential Diagnosis: CVA, alcohol intoxication, hypoglycemia, sepsis, volume bo1 depletion. Data reviewed: vital signs, lab test result(s), EKG, radiologic studies, CT scan. Discussion of test interpretation with radiology: I had a discussion with radiology regarding a test interpretation. Subacute subdural with midline shift and mass effect. Transition of care: After a detail discussion of the patient's case, care is transferred to Nick Murphy MD. ED course: Transfer from [facility]. 21:22 ED course: [facility] on their way, ETA 30 minutes. rn 21:35 Special discussion: Discussed the condition with Lupis, the daughter who has been bo1 advised of the CT findings and intent to transfer to [facility]. Lupis states she will plan a visit tomorrow.. 07/23 17:44 Order name: Blood Culture Adult (2) bo07/23 17:44 Order name: CBC with Diff; Complete Time: 20:32 bo07/23 17:44 Order name: CMP; Complete Time: 19:24 07/23 17:44 Order name: Lactate w/ 2H reflex if indic.; Complete Time: 19:24 07/23 17:44 Order name: Protime (+inr); Complete Time: 18:44 07/23 17:44 Order name: Ptt, Activated; Complete Time: 18:44 07/23 17:44 Order name: AMMONIA; Complete Time: 19:24 bo07/23 18:43 Order name: ETOH Level; Complete Time: 20:18 bo07/23 19:19 Order name: Ghost Lactate-NO COLLECT Timer; Complete Time: 21:22 EDMS 07/23 20:19 Order name: CBC Smear Scan; Complete Time: 20:32 EDMS 07/23 17:44 Order name: Chest Single View XRAY; Complete Time: 18:44 07/23 20:23 Order name: CT Head Brain wo Cont; Complete Time: 21:03 07/23 17:44 Order name: Accucheck; Complete Time: 18:06 07/23 17:44 Order name: Cardiac monitoring; Complete Time: 17:47 07/23 17:44 Order name: EKG - Nurse/Tech; Complete Time: 18:06 07/23 17:44 Order name: IV Saline Lock - Large Bore; Complete Time: 17:49 07/23 17:44 Order name: Labs collected and sent; Complete Time: 18:06 07/23 17:44 Order name: O2 Per Protocol; Complete Time: 17:47 07/23 17:44 Order name: O2 Sat Monitoring; Complete Time: 17:47 07/23 17:44 Order name: Vital Signs; Complete Time: 17:47 07/23 20:54 Order name: Hayes; Complete Time: 21:20 rn EC:10 Rate is 69 beats/min. Rhythm is regular. [place] interval is normal. QRS interval is normal. bo1 QT interval is normal. T waves are Normal. No ST changes noted. Clinical impression: Normal ECG and Left axis with low voltage QRS Inferior infarct - unknown age. Interpreted by me. Reviewed by me. Administered Medications: 20:20 Drug: NS 0.9% IV 1000 ml IV at 1 bolus Per protocol; to be given as a bolus over 60 jb4 minutes Route: IV; Rate: 1 bolus; Site: left antecubital; 22:18 Follow up: Response: No adverse reaction; IV Status: Infusion continued; IV Intake: jb4 1000ml 21:20 Drug: Mannitol IV 20% 1 g/kg 500 ml IV at calculated rate once; Administer over 30 to kc6 60 minutes Volume: 500 ml; Route: IV; Rate: calculated rate; Site: left antecubital; 22:18 Follow up: IV Status: Infusion continued upon transfer jb4 21:31 Drug: Rocephin IV 2 grams IV at bolus once; Given slow IV push per pharmarcy jb4 instructions Route: IV; Rate: bolus; Site: right antecubital; 22:18 Follow up: Response: No adverse reaction; IV Status: Completed infusion; IV Intake: jb4 100ml 22:08 Drug: Keppra IV 1000 mg IV at calculated rate once Route: IV; Rate: calculated rate; kc6 Site: right antecubital; Disposition: 21:13 Critical Care:. rn Disposition Summary: 07/23/24 21:12 Transfer Ordered Notes: Transfer Location: [facility] rn Reason: Higher level of care rn Condition: Serious rn Problem: new rn Symptoms: are unchanged rn Accepting Physician: (07/23/24 22:19) cosme Diagnosis - Traumatic subdural hemorrhage rn - Altered mental status, unspecified rn Forms: - Medication Reconciliation Form rn - SBAR form media relations intern time excluding procedures: 21:13 Critical care time: Bedside Care: 30 minutes, Consultation: 5 minutes. Total time: 35 rn minutes Signatures: Dispatcher [employer] EDMS Nick Murphy MD MD rn Hall, Patricia RN Maulik Bain ph RN MAC [email or web address] Loni Hernandez RN RN kc6 Felix Byrne MD MD bo1 Corrections: (The following items were deleted from the chart) 17:45 17:45 BLOOD CULTURE*+BA.LAB.BRZ ordered. EDMS EDMS 17:45 17:45 CBC+H.LAB.BRZ ordered. EDMS EDMS 17:45 17:45 COMPREHENSIVE METABOLIC PANEL+C.LAB.BRZ ordered. EDMS EDMS 17:45 17:45 LACTATE+C.LAB.BRZ ordered. EDMS EDMS 17:45 17:45 PROTIME (+INR)+COAG.LAB.BRZ ordered. EDMS EDMS 17:45 17:45 PTT, ACTIVATED+COAG.LAB.BRZ ordered. EDMS EDMS 17:45 17:45 Urinalysis+U.LAB.BRZ ordered. EDMS EDMS 17:45 17:45 Chest Single View+RAD.RAD.BRZ ordered. EDMS EDMS 17:45 17:45 AMMONIA+C.LAB.BRZ ordered. EDMS EDMS 18:43 18:43 ETHANOL+C.LAB.BRZ ordered. EDMS EDMS 22:19 21:12 rn jb4
--- NOTE | 2024-07-23 21:13 | ER ---
Nurse's Notes [facility] Name: Jay Patel Age: 78 yrs Sex: Male : 1945 Arrival Date: 07/23/2024 Time: 17:27 Bed 3 Private MD: Diagnosis: Traumatic subdural hemorrhage;Altered mental status, unspecified Presentation: 07/23 17:30 Chief complaint: EMS states: From home, EMS initially called for pt's , when they ph arrived pt was found on ground, unknown if he had fallen, states that she thinks he had been on the ground since this morning, pt normally A\T\O x 4 but is currently AMS, 12 lead showed runs of SVT w/ rate up to 200, 6 mg Adenosine given, 18G IV to LAC. Coronavirus screen: Vaccine status: unable to obtain. Ebola Screen: No symptoms or risks identified at this time. Initial Sepsis Screen: Does the patient meet any 2 criteria? No. Patient's initial sepsis screen is negative. Does the patient have a suspected source of infection? No. Patient's initial sepsis screen is negative. Risk Assessment: Do you want to hurt yourself or someone else? Patient reports no desire to harm self or others. Onset of symptoms was July 23, 2024. 17:30 Method Of Arrival: [facility] 17:30 Acuity: YURIDIA 2 ph Triage Assessment: 17:36 General: Appears in no apparent distress. Behavior is drowsy, listless. Pain: Unable to ph use pain scale. Patient is disoriented. Neuro: Level of Consciousness is lethargic, listless, Oriented to none opens eyes to verbal stimuli. Cardiovascular: Capillary refill < 3 seconds in bilateral fingers Patient's skin is warm and dry. Rhythm is sinus rhythm. Respiratory: Airway is patent Respiratory effort is even, unlabored, Respiratory pattern is regular, symmetrical. Derm: Skin is pink, warm \T\ dry. Musculoskeletal: Circulation, motion, and sensation intact. Range of motion: intact in all extremities. Historical: - Allergies: 17:35 Bactrim; ph 17:35 PENICILLINS; ph - PMHx: 17:35 Anxiety; BPH; depressive disorder; Hypercholesterolemia; ph - Immunization history:: Adult Immunizations unknown. - Infectious Disease History:: unable to obtain. - Social history:: Smoking status: unknown. Screenin:34 [facility] ED Fall Risk Assessment (Adult) History of falling in the last 3 months, ph including since admission Yes- physiologic fall (2 pts) Confusion or Disorientation Yes (5 pts) Intoxicated or Sedated No (0 pts) Impaired Gait No (0 pts) Mobility Assist Device Used No (0 pt) Altered Elimination No (0 pt) Score/Fall Risk Level 3 or more points = High Risk Oriented to surroundings, Maintained a safe environment, Hourly rounding (assess needs \T\ fall precautionary measures) done, Used ambulatory aids as needed (educated on \T\ assisted with). Abuse screen: Denies threats or abuse. Denies injuries from another. Nutritional screening: No deficits noted. Tuberculosis screening: No symptoms or risk factors identified. Assessment: 18:33 General: SEE TRIAGE ASSESSMENT. ph 19:48 Reassessment: Patient appears in no apparent distress at this time. No changes from kc previously documented assessment. Patient and/or family updated on plan of care and expected duration. Pain level reassessed. 21:33 Reassessment: Pt is lethargic, A\T\Ox1, respirations even and unlabored. Report called to jb4 [facility] ER. 22:16 Reassessment: Patient appears in no apparent distress at this time. No changes from 4 previously documented assessment. Patient and/or family updated on plan of care and expected duration. Pain level reassessed. Vital Signs: 17:30 BP 149 / 83; Pulse 69; Resp 18; Temp 98.8; Pulse Ox 97% on R/A; Weight 49 kg; Height 5 ph ft. 6 in. ; 18:34 BP 135 / 90; Pulse 76; Resp 20; Pulse Ox 96% on 2 lpm NC; ph 19:48 BP 155 / 83; Pulse 78; Resp 16 S; Pulse Ox 96% on R/A; kc6 21:28 BP 138 / 88; Pulse 76; Resp 16; Pulse Ox 100% on 2 lpm NC; jb4 22:18 BP 150 / 74; Pulse 71; Resp 15; Pulse Ox 98% on 2 lpm NC; jb4 17:30 Body Mass Index 17.44 (49.00 kg, 167.64 cm) ph Vitals: 18:34 Cardiac Rhythm Assessment Sinus rhythm. ph Clayton Coma Score: 21:00 Eye Response: to voice(3). Motor Response: withdraws from pain(4). Verbal Response: bo1 incomprehensible(2). Total: 9. 21:28 Eye Response: to voice(3). Motor Response: withdraws from pain(4). Verbal Response: jb4 confused(4). Total: 11. 22:18 Eye Response: to voice(3). Motor Response: withdraws from pain(4). Verbal Response: jb4 confused(4). Total: 11. ED Course: 17:30 Patient arrived in ED. ph 17:35 Triage completed. ph 17:38 Felix Byrne MD is Attending Physician. bo1 17:43 Arm band placed on Patient placed in an exam room, on a stretcher, on pulse oximetry. ph 18:00 Beverly Vazquez RN is Primary Nurse. ph 18:00 Initial lab(s) drawn, by me, sent to lab. Maintain EMS IV. Dressing intact. Good blood ph return noted. Site clean \T\ dry. Gauge \T\ site: 18 LAC. Flushed with 10 mL NS. Oxygen administration via nasal cannula \T\ 2L/min. 18:15 First set of blood cultures drawn by me. Missed attempt(s): 22 gauge in right ph antecubital area. Bleeding controlled, band aid applied, catheter tip intact. 18:16 Chest Single View XRAY In Process Unspecified. EDMS 18:25 Initial lab(s) drawn, by me, sent to lab. Second set of blood cultures drawn by me. ph Inserted saline lock: 20 gauge in right forearm, using aseptic technique. Blood collected. Flushed with 10 mL NS. 18:34 Patient has correct armband on for positive identification. Bed in low position. Call ph light in reach. Side rails up X2. Client placed on continuous cardiac and pulse oximetry monitoring. NIBP monitoring applied. monitoring coordinator on. 18:35 AMMONIA Sent. ph 18:35 Blood Culture Adult (2) Sent. ph 18:35 CMP Sent. ph 18:35 Lactate w/ 2H reflex if indic. Sent. ph 20:46 CT Head Brain wo Cont In Process Unspecified. EDMS 21:03 Attending Physician role handed off by Felix Byrne MD rn 21:03 Nick Murphy MD is Attending Physician. rn 21:09 initiated transfer with [facility] spoke with Rachel. townsend 22:03 patient was accepted to [facility] ER to Dr. Thompson per transfer center Leander Oliveira. \T\ 2112/ [facility] was initiated by [facility] transfer air traffic control specialist centerrep. Leander Oliveira advised ETA will be 32 mins. 22:16 No provider procedures requiring assistance completed. Patient transferred, IV remains jb4 in place. Administered Medications: 20:20 Drug: NS 0.9% IV 1000 ml IV at 1 bolus Per protocol; to be given as a bolus over 60 jb4 minutes Route: IV; Rate: 1 bolus; Site: left antecubital; 22:18 Follow up: Response: No adverse reaction; IV Status: Infusion continued; IV Intake: jb4 1000ml 21:20 Drug: Mannitol IV 20% 1 g/kg 500 ml IV at calculated rate once; Administer over 30 to kc6 60 minutes Volume: 500 ml; Route: IV; Rate: calculated rate; Site: left antecubital; 22:18 Follow up: IV Status: Infusion continued upon transfer jb4 21:31 Drug: Rocephin IV 2 grams IV at bolus once; Given slow IV push per pharmarcy jb4 instructions Route: IV; Rate: bolus; Site: right antecubital; 22:18 Follow up: Response: No adverse reaction; IV Status: Completed infusion; IV Intake: jb4 100ml 22:08 Drug: Keppra IV 1000 mg IV at calculated rate once Route: IV; Rate: calculated rate; kc6 Site: right antecubital; Medication: 18:34 VIS not applicable for this client. ph Intake: 22:18 IV: 100ml; Total: 100ml. jb4 22:18 IV: 1000ml; Total: 1100ml. jb4 Outcome: 21:12 ER care complete, transfer ordered by . rn 22:16 Transferred by helicopter to [facility], Transfer form completed. X-rays sent jb4 w/ patient. 22:16 Condition: stable 22:19 Patient left the ED. jb4 Signatures: Dispatcher [employer] EDMS Nick Murphy MD MD rn Hall, Patricia, RN RN ph Bryson, James, RN RN jb4 Campbell, Kaitlyn, RN RN kc6 Vicenta Rain Benjamin, MD MD bo1 Corrections: (The following items were deleted from the chart) 17:45 17:30 Chief complaint: EMS states: From home, EMS initially called for pt's , when ph they arrived pt was found on ground, unknown if he had fallen, states that she thinks he had been on the ground since this morning, pt normally A\T\O x 4 but is currently AMS, 12 lead showed runs of v-tach w/ rate up to 200, 6 mg Adenosine given, 18G IV to LAC ph 21:33 21:28 GCS: 10, jb4 jb4
[2024-07-23] MEDS ORDERED: LEVETIRACETAM 500 MG/5 ML VIAL IV ONE (22:03)
[2024-07-24 02:30] VITALS: TEMP 98.8
[2024-07-24 02:34] VITALS: BP 150/74; O2SAT 98
== END 2024-07-23 22:19 | disposition short-term general hospital (02) ==
LOC: ER 17:27
DX: S06.5X0A Traumatic subdural hemorrhage without loss of consciousness, initial encounter (principal)
CPT/HCPCS: 87040 ×2; 85025; 36415; 82140; 85610; 83605; 85730; 80053; 70450; 71045; 99285; 82077; J1953; J2150 ×2; J0696; J7040; J7030